=== PATIENT | female | born 1945 | race Caucasian/White ===

== ENCOUNTER → 2021-03-19 14:09 | Outpatient (CLI) | payer MEDICARE, BC, SELFPAY ==
--- NOTE | ~2021-03-19 | MM_ITS ---
EXAMINATION: MM screening [facility] HISTORY: Screening mammogram TECHNIQUE: Craniocaudal and mediolateral oblique 3-D tomosynthesis images were obtained and synthetic 2-D images were generated. CAD analysis was submitted and interpreted. COMPARISON: No prior mammogram is available for comparison at this institution. BREAST PARENCHYMAL COMPOSITION: The breasts are heterogeneously dense, which may obscure small masses . FINDINGS: Scattered benign-appearing calcifications are present. There is no evidence of suspicious m ass, calcification, or architectural distortion to suggest malignancy in either breast. IMPRESSION: 1. No mammographic evidence of malignancy. 2. Recommend routine screening mammography in one year. BI-RADS Category 2: Benign finding(s). Reviewed, dictated and finalized at location A.
== END ==
PROVIDERS: PCP Family Medicine; Visit Provider Family Medicine
DX: Z12.31 Encounter for screening mammogram for malignant neoplasm of breast (principal)
CPT/HCPCS: 77063; 77067

== ENCOUNTER → 2022-05-07 14:33 | Outpatient (CLI) | payer MEDICARE, BC, SELFPAY ==
--- NOTE | ~2022-05-07 | MM_ITS ---
EXAMINATION: MM screening [facility] BI w trish HISTORY: Screening mammogram TECHNIQUE: Craniocaudal and mediolateral oblique 3-D tomosynthesis images were obtained and synthetic 2-D images were generated. CAD analysis was submitted and interpreted. COMPARISON: 03/19/2021 BREAST PARENCHYMAL COMPOSITION: The breasts are heterogeneously dense, which may obscure small masses . FINDINGS: Scattered benign-appearing calcifications are present. There is no suspicious mass, calcifi cation, or architectural distortion to suggest malignancy in either breast. There has been no suspici ous interval change. IMPRESSION: 1. No mammographic evidence of malignancy. 2. Recommend routine screening mammography in one year. BI-RADS Category 2: Benign finding(s). Reviewed, dictated and finalized at location A.
== END ==
PROVIDERS: PCP Family Medicine; Visit Provider Family Medicine
DX: Z12.31 Encounter for screening mammogram for malignant neoplasm of breast (principal)
CPT/HCPCS: 77063; 77067

== ENCOUNTER 2023-01-15 00:31 | Day surgery (SDC) | payer MEDICARE, BC, SELFPAY ==
[2022-12-31 11:28] VITALS: BMI 24.5
--- NOTE | 2023-01-14 19:24 | P.HP_ITS ---
History of Present Illness History of Present Illness Consent: Risks, benefits, and alternatives have been discussed and questions answered. Patient agrees to proceed with procedure. Chief complaint: neoplasm screening Narrative: Precious Damian is a 77 year old female referred for colon cancer screening. She has had several colonoscopies in the past, almost always with 2 polyps being removed. Her last examination was 6 years ago in [place] Review of Systems Review of Systems: All systems reviewed & are unremarkable except as noted in HPI and below PMFSH Past Medical History Medical History Hyperlipidemia Family History Family History Father Cerebrovascular accident Mother Cerebrovascular accident Social History Social History Smoking status: Never smoker Alcohol intake: current Drinks per week: 1 Alcohol use details: wine Substance use: never Substance use type: does not use Living arrangements: alone Spiritual care concerns: No Meds Home Medications and Allergies Home Medications Medication Instructions Recorded Confirmed Type cholecalciferol (vitamin D3) 25 25 mcg PO DAILY 03/26/21 01/15/23 History mcg (1,000 unit) capsule omega 5-bih-tzq-fish oil 100 1 cap PO DAILY 03/26/21 01/15/23 History mg-160 mg-1,000 mg capsule (Fish Oil) venlafaxine 150 mg 150 mg PO DAILY 03/26/21 01/15/23 History capsule,extended release 24 hr arginine HCl (L-arginine) 1,000 mg 1,000 mg PO DAILY 12/31/22 01/15/23 History tablet atorvastatin 80 mg tablet 80 mg PO DAILY 12/31/22 01/15/23 History biotin 5,000 mcg disintegrating 5,000 mcg PO DAILY 12/31/22 01/15/23 History tablet levothyroxine 50 mcg tablet 50 mcg PO DAILY 12/31/22 01/15/23 History mecobalamin (vitamin B12) 1,000 1,000 mcg PO DAILY 12/31/22 01/15/23 History mcg chewable tablet triamcinolone acetonide 55 mcg 1 spray intranasal DAILY 12/31/22 01/15/23 History nasal spray aerosol (Nasacort) Allergies Allergy/AdvReac Type Severity Reaction Status Date / Time theophylline Allergy Unknown Unknown Verified 01/15/23 07:46 cat dander Allergy Other Verified 01/15/23 07:46 mold Allergy Other Verified 01/15/23 07:46 pollen extracts Allergy Other Verified 01/15/23 07:46 Exam Const: General: alert Orientation/consciousness: patient oriented x3 Resp: Auscultation: clear to auscultation bilaterally Cardio: Rhythm: regular rhythm GI: GI Palp: Yes Soft to palpation and No Tenderness to palpation present (GI) Neuro: General: patient oriented x3 Assessment and Plan Assessment and plan (1) Colon cancer screening: Code(s): Z12.11 - Encounter for screening for malignant neoplasm of colon Status: Acute Assessment and Plan: Colonoscopy with possible biopsy or polypectomy or cautery or injection of substances.
[2023-01-15 07:40] VITALS: BP 111/59; PULSE 96; RESP 16; TEMP 36; O2SAT 100; BMI 24.0
[2023-01-15] MEDS: LACTATED RINGERS 1,000 ML 150 ML IV CONT (07:59)
--- NOTE | 2023-01-15 08:12 | WPDANESEPPF ---
Anes - Initial Pre Proc Eval Procedure: Operation Date: 01/15/23 09:00 Proposed Procedures p Screening Colonoscopy - Franklin Landry MD Date/Time: 01/15/23 08:12 Surgeon: Franklin Landry MD Pre Op Diagnosis: neoplasm screening Patient Data Age: 77 Gender: F Height: 1.63 m Weight: 63.6 kg Last Vital Signs Temp 36.0 C L 01/15/23 07:40 Pulse 96 01/15/23 07:40 Resp 16 01/15/23 07:40 BP 111/59 L 01/15/23 07:40 Pulse Ox 100 01/15/23 07:40 O2 Del Method Room Air 01/15/23 07:40 Allergies Allergy/AdvReac Type Severity Reaction Status Date / Time theophylline Allergy Unknown Unknown Verified 01/15/23 07:46 cat dander Allergy Other Verified 01/15/23 07:46 mold Allergy Other Verified 01/15/23 07:46 pollen extracts Allergy Other Verified 01/15/23 07:46 Home Medications Medication Instructions Recorded Confirmed Type cholecalciferol (vitamin D3) 25 25 mcg PO DAILY 03/26/21 01/15/23 History mcg (1,000 unit) capsule omega 8-dia-nrb-fish oil 100 1 cap PO DAILY 03/26/21 01/15/23 History mg-160 mg-1,000 mg capsule (Fish Oil) venlafaxine 150 mg 150 mg PO DAILY 03/26/21 01/15/23 History capsule,extended release 24 hr arginine HCl (L-arginine) 1,000 mg 1,000 mg PO DAILY 12/31/22 01/15/23 History tablet atorvastatin 80 mg tablet 80 mg PO DAILY 12/31/22 01/15/23 History biotin 5,000 mcg disintegrating 5,000 mcg PO DAILY 12/31/22 01/15/23 History tablet levothyroxine 50 mcg tablet 50 mcg PO DAILY 12/31/22 01/15/23 History mecobalamin (vitamin B12) 1,000 1,000 mcg PO DAILY 12/31/22 01/15/23 History mcg chewable tablet triamcinolone acetonide 55 mcg 1 spray intranasal DAILY 12/31/22 01/15/23 History nasal spray aerosol (Nasacort) Patient hx anesthesia problems: none Family hx anesthesia problems: none Results Review: All pre-operative results and documents have been reviewed as part of the pre-operative evaluation. [facility] Past Medical History Medical History (Updated 01/15/23 @ 08:12 by Wes Reed MD) Hyperlipidemia Family History Family History Father Cerebrovascular accident Mother Cerebrovascular accident Social History Social History Smoking status: Never smoker Alcohol intake: current Drinks per week: 1 Alcohol use details: wine Substance use: never Substance use type: does not use Living arrangements: alone Spiritual care concerns: No Anes - Eval Final PreProcedure Day of Procedure 01/15/23 08:12 Patient weight: normal Heart: regular rate and rhythm Lungs: clear to auscultation Airway: Mallampati scale class II Neurological: alert and oriented Last oral intake: >/= 8 hours ASA classification: II Emergent: no Anesthetic plan: proceed Anesthesia type and monitoring: general GIVS and standard monitoring Results Review: All pre-operative results and documents have been reviewed as part of the pre-operative evaluation. Informed Consent: The patient's anesthetic plan and its attendant risks and benefits were discussed with the patient/family/POA. Questions were solicited and answers provided to the satisfaction of the patient/family/POA.
[2023-01-15 09:04] VITALS: BP 140/81; PULSE 76; RESP 18; O2SAT 97
[2023-01-15 09:14] VITALS: BP 128/71; PULSE 79; RESP 18; O2SAT 98
[2023-01-15 09:24] VITALS: BP 119/71; PULSE 70; RESP 22; O2SAT 100
== END 2023-01-15 09:42 | disposition home or self-care (01) ==
PROVIDERS: PCP Family Medicine; Visit Provider Internal Medicine Gastroenterology
PROC: 0DJD8ZZ Inspection of Lower Intestinal Tract, Via Natural or Artificial Opening Endoscopic (ICD-10-PCS; CPT 45378; principal; 2023-01-15 09:00)
DX: Z12.11 Encounter for screening for malignant neoplasm of colon (principal); D12.8 Benign neoplasm of rectum; K57.30 Diverticulosis of large intestine without perforation or abscess without bleeding; E78.5 Hyperlipidemia, unspecified
CPT/HCPCS: 45385; 88305; J2704; J7120

== ENCOUNTER 2023-04-13 02:40 | Inpatient (IN) | payer MEDICARE, BC, SELFPAY ==
[2023-04-13] VITALS (120 sets, daily range): BP systolic 54–157; BP diastolic 34–140; PULSE 76–149; RESP 9–23; TEMP 35.2–36.9; O2SAT 67–100; BMI 26.6
--- NOTE | ~2023-04-13 | CT_ITS ---
Non-contrast Head CT History: Altered mental status Technique: Axial non-contrast imaging of the brain was performed. Dose reduction technique was used on this scan by utilizing automated exposure control and iterative reconstruction technique. The dose -length product (DLP) was 681.00 mGy-cm. Findings: There is no evidence of intracranial hemorrhage, mass lesion, or acute infarct. Brain par enchyma appears normal. The ventricles and subarachnoid spaces are normal in size. The calvarium ap pears normal. Left maxillary sinus disease noted. The remaining visualized paranasal sinuses and mast oid air cells are clear. Impression: No intracranial abnormality seen. Left maxillary sinus disease. Reviewed, dictated and finalized at location . Impression: No intracranial abnormality seen. Left maxillary sinus disease.
--- NOTE | ~2023-04-13 | CT_ITS ---
Clinical Indication: Sepsis, hypotension CT Scan of the Chest, Abdomen, and Pelvis with Contrast: Technique: Contiguous sections were acquired throughout the chest, abdomen, and pelvis after intraven ous administration of 100 cc of Omnipaque 350. Dose reduction technique was used on this scan by joel acrcamo automated exposure control and iterative reconstruction technique. The dose-length product (DL P) was 758.30 mGy-cm. Findings: There is no evidence of any significant mediastinal, hilar or axillary lymphadenopathy. The mediastin al soft tissues and vascular structures appear normal. There is no evidence of pleural or pericardial effusion. Possible minimal interstitial edema. No other consolidation or pulmonary nodule identified. The liver, spleen, pancreas, gallbladder, adrenals and kidneys are within normal limits. No evidence of aortic aneurysm. No lymphadenopathy. No bowel obstruction or bowel wall thickening. There is no evidence to suggest acute appendicitis. Urinary bladder is collapsed runner Neumann catheter. 3.3 cm adnexal cyst present (axial image 187). No ascites. Impression: 3.3 cm right adnexal cyst. Given patient age, gynecologic follow-up and probably yearly ultrasound fo llow-up would be recommended. Possible minimal interstitial edema. Reviewed, dictated and finalized at [facility]. Impression: 3.3 cm right adnexal cyst. Given patient age, gynecologic follow-up and probabl y yearly ultrasound follow-up would be recommended. Possible minimal interstitial edema.
--- NOTE | ~2023-04-13 | XR_ITS ---
Portable chest x-ray Comparison: None Clinical History: Central line placement Findings: Right-sided subclavian line is in satisfactory position. Lungs are clear, without focal co nsolidation or pleural effusion. No pneumothorax. Cardiomediastinal silhouette is stable. Bones and soft tissues are unremarkable. Impression: Right subclavian line in place. Clear lungs. Reviewed, dictated and finalized at location M. Impression: Right subclavian line in place. Clear lungs.
--- NOTE | 2023-04-13 02:49 | ECG_ITS ---
Measurements Intervals [place] Rate: 134 P: OR: 0 QRS: 95 QRSD: 89 T: 89 QT: 243 QTc: 364 Interpretive Statements ATRIAL FIBRILLATION WITH RAPID VENTRICULAR RESPONSE RIGHT AXIS DEVIATION CANNOT RULE OUT SEPTAL INFARCT, AGE INDETERMINATE ST-T WAVE ABNORMALITY IN ANTEROLAT/INF LEADS- CONSIDER ISCHEMIA BASELINE WANDER- I, II, III, AVR, AVL, AVF, V1, V4-V6 ABNORMAL ECG NO PREVIOUS ECG AVAILABLE FOR COMPARISON Electronically Signed On 04-13-2023 6:40:42 CDT by Pepe Pablo D.O.
--- NOTE | 2023-04-13 02:49 | ECG_ITS ---
Measurements Intervals [place] Rate: 81 P: 71 CA: 166 QRS: 79 QRSD: 84 T: 78 QT: 392 QTc: 456 Interpretive Statements SINUS RHYTHM POSSIBLE LEFT ATRIAL ENLARGEMENT ST-T WAVE ABNORMALITY IN LAT/HIGH LAT LEADS- CONSIDER ISCHEMIA BASELINE WANDER- I, II, V1-V3, V6 ABNORMAL ECG NO PREVIOUS ECG AVAILABLE FOR COMPARISON Electronically Signed On 04-13-2023 18:19:39 CDT by Pepe Pablo D.O.
[2023-04-13] MEDS: SODIUM CHLORIDE 0.9% IV 3,000 ML 999 ML IV CONT (02:55)
[2023-04-13 03:12] LABS: Basophils Percent Auto 0.2 % (0.2-1.2); Hematocrit 44.9 % (37.0-47.0); Immature Granulocyte Absolute 0.03 K/mm3 (0.00-0.031); Immature Granulocyte Percent A 0.3 % (0-0.5); Lymphocytes Absolute Auto 1.15 K/mm3 (0.9-3.2); Lymphocytes Percent Auto 9.7 % (18.3-44.2); Mean Corpuscular HGB Conc 33.4 g/dl (32-36); Mean Corpuscular Volume 89.8 fl (80-100); Mean Platelet Volume 10.4 fl (7.4-10.4); Monocytes Absolute Auto 0.7 K/mm3 (0.1-0.6); Monocytes Percent Auto 5.5 % (2.6-8.5); Neutrophils Absolute Auto 10.1 K/mm3 (1.3-6.7); Neutrophils Percent Auto 84.3 % (45.5-73.1); Platelet Count Result 219 k/mm3 (150-375); Red Cell Distribution Width 13.7 % (11.5-14.5); White Blood Count 11.9 K/mm3 (4.5-10.0)
[2023-04-13 03:23] LABS: INR 0.9; Prothrombin Time 12.8 Seconds (11.1-14.7)
[2023-04-13 03:24] LABS: Partial Thromboplastin Time 31.5 SECONDS (22.3-36.8)
[2023-04-13 03:33] LABS: Lactic Acid Reflex 4.8 mmol/L (0.7-2.0)
[2023-04-13 03:34] LABS: Alanine Aminotransferase 26 U/L (6-35); Albumin Level 4.2 g/dL (3.5-5.1); Alkaline Phosphatase 93 U/L (38-126); Anion Gap 9 mmol/L (8-16); Aspartate Amino Transferase 30 U/L (14-36); Bilirubin,Total 0.7 mg/dL (0.2-1.3); Blood Urea Nitrogen 17 mg/dL (7-17); CRP < 0.5 mg/dL (<1.0); Calcium 9.3 mg/dL (8.4-10.2); Carbon Dioxide 28 mmol/L (22-30); Chloride 103 mmol/L (98-107); Estimated CRCL calculation 44 ml/min; Estimated Glomerular Filt Rate > 60; Glucose 173 mg/dL (65-110); Potassium 3.4 mmol/L (3.4-5.0); Sodium 140 mmol/L (137-145)
[2023-04-13 03:57] LABS: Appearance Urine Clear (Clear); Bacteria Urine None Seen /hpf; Bilirubin Urine Negative (Negative); Blood Urine Negative (Negative); Color Urine Yellow (Yellow); Glucose Urine UA Negative (Negative); Ketones Urine Trace mg/dL (Negative); Leukocyte Esterase Ur Negative LEU/UL (Negative); Nitrate Urine Negative (Negative); Protein Urine 1+ mg/dL (Negative); RBC Urine 0-2 /hpf (0-2); Specific Grav Ur 1.018 (1.001-1.035); Squamous Epithelial Cell Urine None seen /hpf (Few); Urobilinogen Urine 0.2 mg/dL (<2.0); WBC Urine 0-5 /hpf
[2023-04-13] MEDS: NOREPINEPHRINE 8 MG/D5W 250 ML 8 MG/250 ML BAG 9.38 MG IV CONT (03:59)
[2023-04-13] MEDS: PIPERACILLIN/TAZOBACTAM SOD 4.5 GM in SODIUM CHLORIDE 0.9% IV 100 ML 200 ML IVPB (04:00)
[2023-04-13 04:15] LABS: Add Urine Microscopic? NO
[2023-04-13] MEDS: SODIUM CHLORIDE 0.9% IV 1,000 ML 999 ML IV CONT (05:12)
[2023-04-13] MEDS: ONDANSETRON INJ 4 MG/2 ML VIAL IV PUSH (05:12)
--- NOTE | 2023-04-13 05:25 | ED.GENADULT ---
HPI - General Adult General Chief complaint: Nausea/Vomiting/Diarrhea Stated complaint: N/V/D Time Seen by Provider: 04/13/23 03:18 History of Present Illness HPI narrative: This is a 77-year-old female presenting to the ED after 1 day of nausea vomiting and diarrhea. On arrival the patient is lethargic and going in and out of consciousness. She is A&O x1. she says she has no complaints other than feeling weak. The daughter is at bedside and states the patient has been having nausea vomiting and diarrhea all day. At 10:30 p.m. the patient called the daughter and sounded weak on the phone. When the daughter went over there she found her collapsed on the bathroom floor covered in diarrhea. She help clean her off and put her to bed but the patient still was not doing well and she called EMS and was brought to the hospital. Related Data Home Medications Medication Instructions Recorded Confirmed cholecalciferol (vitamin D3) 25 25 mcg PO DAILY 03/26/21 01/15/23 mcg (1,000 unit) capsule omega 0-fcf-rgs-fish oil 100 1 cap PO DAILY 03/26/21 01/15/23 mg-160 mg-1,000 mg capsule (Fish Oil) venlafaxine 150 mg 150 mg PO DAILY 03/26/21 01/15/23 capsule,extended release 24 hr arginine HCl (L-arginine) 1,000 mg 1,000 mg PO DAILY 12/31/22 01/15/23 tablet atorvastatin 80 mg tablet 80 mg PO DAILY 12/31/22 01/15/23 biotin 5,000 mcg disintegrating 5,000 mcg PO DAILY 12/31/22 01/15/23 tablet levothyroxine 50 mcg tablet 50 mcg PO DAILY 12/31/22 01/15/23 mecobalamin (vitamin B12) 1,000 1,000 mcg PO DAILY 12/31/22 01/15/23 mcg chewable tablet triamcinolone acetonide 55 mcg 1 spray intranasal DAILY 12/31/22 01/15/23 nasal spray aerosol (Nasacort) Allergies Allergy/AdvReac Type Severity Reaction Status Date / Time theophylline Allergy Unknown Unknown Verified 01/15/23 07:46 cat dander Allergy Other Verified 01/15/23 07:46 mold Allergy Other Verified 01/15/23 07:46 pollen extracts Allergy Other Verified 01/15/23 07:46 [facility] Past Medical History Medical History Hyperlipidemia Family History Family History Father Cerebrovascular accident Mother Cerebrovascular accident Social History Social History Smoking status: Never smoker Alcohol intake: current Drinks per week: 1 Alcohol use details: wine Substance use: never Substance use type: does not use Living arrangements: alone Spiritual care concerns: No Exam Narrative: APPEARANCE: Patient is pale and lapsing in / out of consciousness Head: atraumatic. EYES: EOMI, NOSE: Atraumatic NECK: Trachea midline RESPIRATORY: No increased rate of breathing, clear to auscultation CARDIOVASCULAR: RRR, no peripheral edema ABDOMINAL: Non-distended, soft nontender no guarding or rebound MUSCULOSKELETAl: No obvious deformities NEURO: Alert. Moving 4/4 extremities SKIN:: cool clammy, patient has a red rash diffusely. Per patient and her family this is chronic and has been evaluated by multiple dermatologists with no conclusion. PSYCHIATRIC: lethargic Course Vital Signs Vital signs: Vital Signs Temperature 97.2 F L 04/13/23 02:41 Pulse Rate 83 04/13/23 02:41 Respiratory Rate 13 04/13/23 02:41 Blood Pressure 62/38 L 04/13/23 02:41 Pulse Oximetry 95 04/13/23 02:41 Oxygen Delivery Room Air 04/13/23 02:41 Temperature 95.4 F L 04/13/23 03:34 Pulse Rate 91 04/13/23 05:51 Respiratory Rate 18 04/13/23 05:51 Blood Pressure 116/48 L 04/13/23 05:51 Pulse Oximetry 97 04/13/23 05:51 Oxygen Delivery Room Air 04/13/23 02:41 Procedures Central Line Placement Right SC: Central Line Date: 04/13/23 Discussed w/ the patient/family/POA,the placement of a central venous catheter, including its clinical necessity/indication & associa
[2023-04-13 06:09] LABS: Reflex Lactic Acid Yes or No Add Lactic
[2023-04-13 06:24] LABS: Creatine Kinase 61 U/L (30-135)
[2023-04-13 06:43] LABS: Erythrocyte Sedimentation Rate 8 mm/hr (0-20)
[2023-04-13 06:43] LABS: Lactic Acid 2.1 mmol/L (0.7-2.0)
[2023-04-13 07:03] LABS: Troponin I 0.054 ng/mL (0.000-0.034)
--- NOTE | 2023-04-13 07:10 | ADMGEN ---
This patient, Precious Damian, was admitted to Intensive Care Unit-9. Patient/family oriented to hospital policies and general routines including ID bracelet, bed and alarms, visiting hours, pain management, procedures, bathroom and other care routines, personal items, smoking policy, room service/diet, and visiting hours. Information on how to activate the Rapid Response Team has been discussed. Patient/Family are encouraged to report perceived risks to care and to ask questions if they do not understand what they are told or what they should do.
[2023-04-13 07:15] LABS: Thyroid Stimulating Hormone Reflex 0.238 uIU/mL (0.465-4.68)
[2023-04-13 07:26] LABS: Influenza A QL RT-PCR Negative (Negative); Influenza B QL RT-PCR Negative (Negative); RSV RNA, RT-PCR Negative (Negative); SARS-CoV-2 RNA PCR Negative (Negative)
--- NOTE | 2023-04-13 07:59 | WPDCNINT ---
Assessment and Plan Assessment and plan (1) Shock: Code(s): R57.9 - Shock, unspecified Status: Acute Assessment and Plan: Patient presented with altered mental status, hypotensive, nausea, vomiting, diarrhea after eating some leftovers the previous day. -in the ER patient was found to be hypotensive, was given 4 L IV fluid bolus and started on Levophed after a right subclavian central line was inserted -currently on maintenance IV fluids -continue Levophed and maintain mean arterial pressures > 65 mmHg for adequate end organ perfusion -will monitor renal function and urine -initial lactic acid was 4.8, repeat is 2.1, continue to trend -patient has been started on vancomycin and Zosyn -source likely gastroenteritis versus colitis as seen on CT scan of the chest/abdomen and pelvis -blood cultures have been obtained -UA is negative -chest x-ray did not show any cardiopulmonary disease (2) Nausea & vomiting: Code(s): R11.2 - Nausea with vomiting, unspecified Status: Acute Assessment and Plan: Continue maintenance IV fluids, -p.r.n. Zofran (3) Diarrhea: Code(s): R19.7 - Diarrhea, unspecified Status: Acute Assessment and Plan: Patient states that diarrhea has resolved - (4) Thyroid disorder: Code(s): E07.9 - Disorder of thyroid, unspecified Status: Acute Assessment and Plan: Continue levothyroxine Plan DVT prophylaxis: Lovenox Stress ulcer prophylaxis: Not indicated Nutrition: Clear liquid diet for now Code Status: Full code Critical Care Time Spent: 47 minutes Due to a high probability of clinically significant, life threatening deterioration, the patient required my highest level of preparedness to intervene emergently and I personally spent this critical care time directly and personally managing the patient. This critical care time included obtaining a history; examining the patient; pulse oximetry; ordering and review of studies; arranging urgent treatment with development of a management plan; evaluation of patient's response to treatment; frequent reassessment; and discussions with other providers. It was exclusive of separately billable procedures and treating other patients and teaching time. Please see Assessment and Plan section and the rest of the note for further information on patient assessment and treatment This dictation may have been done utilizing a voice recognition system. Attempts have been made to correct errors. However, there may be uncorrected grammatical, spelling, and recognitions errors present. Medical Staff Physician Consult Note Consult date: 04/13/23 Reason for consult: Nausea, vomiting, diarrhea, hypotension, shock HPI: Precious Damian is a 77 year old female with past medical history of hyperlipidemia, erythema annulare presented the ED on 04/13/2023 in the early hours with complains of nausea, vomiting, diarrhea x1 day. Patient stated she had some leftovers the previous night as she did not have any groceries, she had some leftover pizza, salad and cookies. She states she has multiple episodes of nausea, vomiting and diarrhea at the same time. States that she had large amount of vomitus. [place] very weak and called her daughter, when the daughter arrived she found her alert, oriented x1, less responsive and weak. Daughter found the patient on the bathroom floor covered in diarrhea, she cleaned her of and put her on bed and called EMS and brought to the ER at [facility]. In the ED patient was found to be hypotensive, was given total of 4 L of IV fluids despite which her blood pressures remained low, right subclavian central line was inserted and patient was started Levophed. CT scan of the brain was negative chest x-ray was clear, UA is unremarkable. CT scan of the abdomen and pelvis showed trace pulmonary edema, segmental wall thickening of splenic flexure and descending colon which could be he to mild colitis or possibly under dis
[2023-04-13 08:04] LABS: Free T4 Free Thyroxine Reflex 1.27 ng/dL (0.78-2.19)
[2023-04-13 08:05] LABS: Magnesium 1.5 mg/dL (1.6-2.3)
[2023-04-13 08:52] LABS: Total Triiodothyronine (T3) 0.88 NG/ML (0.97-1.69)
[2023-04-13] MEDS: LACTATED RINGERS 1,000 ML 75 ML IV CONT (08:57)
[2023-04-13] MEDS: ENOXAPARIN 40 MG/0.4 ML SYRINGE SUB-Q (08:58)
[2023-04-13] MEDS: MAGNESIUM SULF 2 GM/WATER 50ML 2 GM/50 ML BAG IVPB (09:01)
[2023-04-13] MEDS: KCL 40 MEQ/WATER 100 ML 100 ML 25 ML IVPB (09:53)
[2023-04-13] MEDS: LEVOTHYROXINE SODIUM 50 MCG TABLET PO (09:54)
--- NOTE | 2023-04-13 12:18 | ADMIMU ---
This patient, Precious Damian, was admitted to IMU status, and placed in Intensive Care Unit-9. Patient/family oriented to hospital policies and general routines including ID bracelet, bed and alarms, visiting hours, pain management, procedures, bathroom and other care routines, personal items, smoking policy, room service/diet, and visiting hours. Valuables list has been completed. Information on how to activate the Rapid Response Team has been discussed. Patient/Family are encouraged to report perceived risks to care and to ask questions if they do not understand what they are told or what they should do.
--- NOTE | 2023-04-13 12:18 | PC.NURSE ---
0701- Pt arrived with 8mcg/min infusing through left ac piv#20. Switched to left subclavian central line .
[2023-04-13] MEDS: PIPERACILLN/TAZ 3.375GM/NS50ML 3.375 GM/50 ML BAG IVPB ×2 (12:22→17:33)
--- NOTE | 2023-04-13 15:50 | PM.IMHP ---
H&P: HPI History of Present Illness Date/Time: 04/13/23 15:50 Chief Complaint: Nausea/Vomiting/Diarrhea Narrative: HPI narrative: ? This is a 77-year-old female presenting to the ED after 1 day of nausea vomiting and diarrhea.? On arrival the patient is lethargic and going in and out of consciousness.? She is A&O x1. she says she has no complaints other than feeling weak. ? The daughter is at bedside and states the patient has been having nausea vomiting and diarrhea all day.? At 10:30 p.m. the patient called the daughter and sounded weak on the phone.? When the daughter went over there she found her collapsed on the bathroom floor covered in diarrhea.? She help clean her off and put her to bed but the patient still was not doing well? and she called EMS and was brought to the hospital. Upon arrival patient was hypotensive most likely secondary to dehydration with vomiting and diarrhea, patient was given IV fluid and patient was placed on Levophed patient blood pressure is Levophed, there is a concern patient have a colitis being treated with Zosyn and vancomycin, overall patient's symptoms are improving will continue to monitor. Patient is admitted as inpatient with shock hypertension on Levophed will stay in the hospital for 2 midnights Review of Systems Review of Systems: All systems reviewed & are unremarkable except as noted in HPI and below PMFSH Past Medical History Medical History Hyperlipidemia Family History Family History Father Cerebrovascular accident Mother Cerebrovascular accident Social History Social History Smoking status: Never smoker Alcohol intake: never Drinks per week: 1 Alcohol use details: wine Substance use: never Substance use type: does not use Lack of Transportation: No Lack of Food: Never True Current Housing: I Have Housing Concerned About Future Housing: No Difficulty Paying Gas/Electric Bills: No Difficulty Paying for Meds: No Currently Unemployed: No Education: High School Diploma/GED Difficulty w/ Childcare or Family Care: No Living arrangements: alone Spiritual care concerns: No Meds Home Medications and Allergies Home Medications Medication Instructions Recorded Confirmed Type cholecalciferol (vitamin D3) 25 25 mcg PO DAILY 03/26/21 04/13/23 History mcg (1,000 unit) capsule omega 8-ehj-dpr-fish oil 100 1 cap PO DAILY 03/26/21 04/13/23 History mg-160 mg-1,000 mg capsule (Fish Oil) venlafaxine 150 mg 150 mg PO DAILY 03/26/21 04/13/23 History capsule,extended release 24 hr arginine HCl (L-arginine) 1,000 mg 1,000 mg PO DAILY 12/31/22 04/13/23 History tablet atorvastatin 80 mg tablet 80 mg PO DAILY 12/31/22 04/13/23 History biotin 5,000 mcg disintegrating 5,000 mcg PO DAILY 12/31/22 04/13/23 History tablet levothyroxine 50 mcg tablet 50 mcg PO DAILY 12/31/22 04/13/23 History mecobalamin (vitamin B12) 1,000 1,000 mcg PO DAILY 12/31/22 04/13/23 History mcg chewable tablet triamcinolone acetonide 55 mcg 1 spray intranasal DAILY 12/31/22 04/13/23 History nasal spray aerosol (Nasacort) Allergies Allergy/AdvReac Type Severity Reaction Status Date / Time theophylline Allergy Unknown Unknown Verified 04/13/23 06:44 cat dander Allergy Other Verified 04/13/23 06:44 mold Allergy Other Verified 04/13/23 06:44 pollen extracts Allergy Other Verified 04/13/23 06:44 Vital Signs Vital Signs - 24 hr 04/13/23 02:41 04/13/23 03:34 04/13/23 03:59 Temperature 97.2 F L 95.4 F L Pulse Rate 83 142 H Respiratory Rate 13 Blood Pressure 62/38 L 74/51 L Pulse Oximetry 95 Oxygen Delivery Room Air 04/13/23 04:05 04/13/23 02:52 04/13/23 02:53 Temperature Pulse Rate 140 H 80 81 Respiratory Rate 21 H 13 Blood Pressure 65/53 L 62/38 L 56/42 L Pul
[2023-04-13] MEDS: CENTRAL LINE FLUSH 10 ML IV PUSH ×3 (17:34→19:53)
[2023-04-13] MEDS: ATORVASTATIN 40 MG TABLET 80 MG PO (19:48)
[2023-04-14] VITALS (55 sets, daily range): BP systolic 109–137; BP diastolic 57–90; PULSE 69–83; RESP 10–36; TEMP 36.8–37; O2SAT 87–98
[2023-04-14] MEDS: LACTATED RINGERS 1,000 ML 75 ML IV CONT (00:18)
[2023-04-14] MEDS: PIPERACILLN/TAZ 3.375GM/NS50ML 3.375 GM/50 ML BAG IVPB ×4 (00:18→17:53)
[2023-04-14] MEDS: ACETAMINOPHEN 325 MG TABLET 650 MG PO ×2 (02:16→21:11)
[2023-04-14] MEDS: CENTRAL LINE FLUSH 10 ML IV PUSH (04:36)
[2023-04-14] MEDS: VANCOMYCIN 1,250 MG/NS 250 ML 1,250 MG/250 ML BAG 166.67 MG IVPB (04:36)
[2023-04-14 05:22] LABS: Lactic Acid Reflex 0.5 mmol/L (0.7-2.0)
[2023-04-14 05:23] LABS: Alanine Aminotransferase 22 U/L (6-35); Albumin Level 2.7 g/dL (3.5-5.1); Alkaline Phosphatase 53 U/L (38-126); Anion Gap 2 mmol/L (8-16); Aspartate Amino Transferase 45 U/L (14-36); Bilirubin,Total 0.5 mg/dL (0.2-1.3); Blood Urea Nitrogen 9 mg/dL (7-17); Calcium 7.4 mg/dL (8.4-10.2); Carbon Dioxide 26 mmol/L (22-30); Chloride 112 mmol/L (98-107); Estimated CRCL calculation 44 ml/min; Estimated Glomerular Filt Rate > 60; Glucose 88 mg/dL (65-110); Magnesium 2.2 mg/dL (1.6-2.3); Phosphorus 2.8 mg/dL (2.5-4.5); Potassium 3.3 mmol/L (3.4-5.0); Sodium 140 mmol/L (137-145)
[2023-04-14 05:30] LABS: Basophils Percent Auto 0.2 % (0.2-1.2); Eosinophils Percent Auto 0.2 % (0-4.4); Hematocrit 32.3 % (37.0-47.0); Hemoglobin 10.4 g/dL (12.0-15.0); Immature Granulocyte Absolute 0.02 K/mm3 (0.00-0.031); Immature Granulocyte Percent A 0.3 % (0-0.5); Immature Platelet Fraction Pct 3.9 % (0.9-11.2); Lymphocytes Absolute Auto 1.24 K/mm3 (0.9-3.2); Lymphocytes Percent Auto 19.1 % (18.3-44.2); Mean Corpuscular HGB Conc 32.2 g/dl (32-36); Mean Corpuscular Hemoglobin 30.5 pg (26-34); Mean Corpuscular Volume 94.7 fl (80-100); Mean Platelet Volume 10.3 fl (7.4-10.4); Monocytes Absolute Auto 0.4 K/mm3 (0.1-0.6); Monocytes Percent Auto 6.8 % (2.6-8.5); Neutrophils Absolute Auto 4.8 K/mm3 (1.3-6.7); Neutrophils Percent Auto 73.4 % (45.5-73.1); Platelet Count Result 121 k/mm3 (150-375); Red Blood Count 3.41 M/mm3 (4.2-5.4); Red Cell Distribution Width 14.4 % (11.5-14.5); White Blood Count 6.5 K/mm3 (4.5-10.0)
[2023-04-14] MEDS: LEVOTHYROXINE SODIUM 50 MCG TABLET PO (06:27)
[2023-04-14] MEDS: VENLAFAXINE HCL XR 75 MG CAP.ER.24H 150 MG PO (08:07)
[2023-04-14] MEDS: POTASSIUM CHLORIDE 20 MEQ TABLET 40 MEQ PO (08:08)
[2023-04-14] MEDS: ENOXAPARIN 40 MG/0.4 ML SYRINGE SUB-Q (08:08)
--- NOTE | 2023-04-14 09:17 | WPDINTPN ---
Progress Note: A&P Assessment and Plan (1) Shock: Code(s): R57.9 - Shock, unspecified Status: Acute Assessment and Plan: Patient presented with altered mental status, hypotensive, nausea, vomiting, diarrhea after eating some leftovers the previous day. -in the ER patient was found to be hypotensive, was given 4 L IV fluid bolus and started on Levophed after a right subclavian central line was inserted -adequate oral intake, will discontinue IV fluids -OFF Levophed -adequate urine output and normal renal function -lactic acid has normalized -04/13: Blood cultures pending -04/13: MRSA screen pending - continue vancomycin and Zosyn (04/13) -source likely gastroenteritis versus colitis as seen on CT scan of the chest/abdomen and pelvis -UA is negative -chest x-ray did not show any cardiopulmonary disease (2) Nausea & vomiting: Code(s): R11.2 - Nausea with vomiting, unspecified Status: Acute Assessment and Plan: Resolved -will discontinue IV fluids as patient has adequate oral intake -p.r.n. Zofran (3) Diarrhea: Code(s): R19.7 - Diarrhea, unspecified Status: Acute Assessment and Plan: Patient states that diarrhea has resolved (4) Thyroid disorder: Code(s): E07.9 - Disorder of thyroid, unspecified Status: Acute Assessment and Plan: Continue levothyroxine Plan DVT prophylaxis: Lovenox Stress ulcer prophylaxis: Not indicated Nutrition: Continue regular diet Code Status: Full code Critical Care Time Spent: 31 minutes Due to a high probability of clinically significant, life threatening deterioration, the patient required my highest level of preparedness to intervene emergently and I personally spent this critical care time directly and personally managing the patient. This critical care time included obtaining a history; examining the patient; pulse oximetry; ordering and review of studies; arranging urgent treatment with development of a management plan; evaluation of patient's response to treatment; frequent reassessment; and discussions with other providers. It was exclusive of separately billable procedures and treating other patients and teaching time. Please see Assessment and Plan section and the rest of the note for further information on patient assessment and treatment This dictation may have been done utilizing a voice recognition system. Attempts have been made to correct errors. However, there may be uncorrected grammatical, spelling, and recognitions errors present. Subjective Date/time seen: 04/14/23 09:17 Interval history: Reason consult: Shock requiring Levophed briefly, hypotension, nausea, vomiting, diarrhea 04/14/2023: Patient seen examined the ICU, is awake but states she is sleepy as she has not slept much at night. Answers questions appropriately and follows simple commands, denies any nausea, vomiting, diarrhea. She remains off Levophed since 10:00 a.m. on 04/13. Patient had adequate urine output, afebrile, hemodynamically stable Review of Systems Review of Systems: All systems reviewed & are unremarkable except as noted in HPI and below Exam Narrative: General: Pleasant female in no acute distress HEENT:? Moist oral mucosa, sclera is clear and pupils are equal and reactive bilaterally Neck:? Supple, no lymphadenopathy Respiratory:? Clear to auscultation bilaterally, adequate air entry, no wheezing Cardiac:? S1-S2 normal, regular rate and rhythm Abdomen:? Soft, nontender, nondistended, normoactive bowel sounds Extremities:? Trace edema, palpable pedal pulses Neuro:? Alert, awake, oriented x3, nonfocal Skin:? Diffuse rash her abdomen and chest which she states is erythema annulare Psych:? Normal mentation and affect Objective Data Vital Signs Vital Signs: Vital Signs - 24 hr 04/13/23 09:30 04/13/23 09:31 04/13/23 09:45 Temperature Pulse Rate 81 81 81 Respiratory Rate 22 H 22 H 21 H Blood
--- NOTE | 2023-04-14 15:16 | WPDPN ---
Progress Note: A&P Assessment and Plan (1) Shock: Code(s): R57.9 - Shock, unspecified Status: Acute Assessment and Plan: HPI narrative: ? This is a 77-year-old female presenting to the ED after 1 day of nausea vomiting and diarrhea.? On arrival the patient is lethargic and going in and out of consciousness.? She is A&O x1. she says she has no complaints other than feeling weak. ? The daughter is at bedside and states the patient has been having nausea vomiting and diarrhea all day.? At 10:30 p.m. the patient called the daughter and sounded weak on the phone.? When the daughter went over there she found her collapsed on the bathroom floor covered in diarrhea.? She help clean her off and put her to bed but the patient still was not doing well? and she called EMS and was brought to the hospital. 04/14/2023 interval history: Upon arrival patient was hypotensive most likely secondary to dehydration with vomiting and diarrhea, patient was given IV fluid and patient was placed on Levophed patient blood pressure was still soft was on Levophed, patient clinical symptoms are improved patient now off Levophed and had no complaints transferred out of ICU, there was a concern patient have a colitis being treated with Zosyn and vancomycin, patient remains clinically stable, 1 bottle of blood culture is growing Gram-positive cocci in clusters will follow-up, overall patient's symptoms are improving will continue to monitor. (2) Acute dehydration: Code(s): E86.0 - Dehydration Status: Acute Assessment and Plan: Most likely secondary nausea or vomiting and poor p.o. intake will continue to hydrate the patient (3) Nausea & vomiting: Code(s): R11.2 - Nausea with vomiting, unspecified Status: Acute Assessment and Plan: Most likely could secondary to gastroenteritis there is a concern patient may have a colitis and being started on Zosyn and vancomycin will continue to monitor Subjective Date/time seen: 04/14/23 15:16 Interval history: HPI narrative: ? This is a 77-year-old female presenting to the ED after 1 day of nausea vomiting and diarrhea.? On arrival the patient is lethargic and going in and out of consciousness.? She is A&O x1. she says she has no complaints other than feeling weak. ? The daughter is at bedside and states the patient has been having nausea vomiting and diarrhea all day.? At 10:30 p.m. the patient called the daughter and sounded weak on the phone.? When the daughter went over there she found her collapsed on the bathroom floor covered in diarrhea.? She help clean her off and put her to bed but the patient still was not doing well? and she called EMS and was brought to the hospital. 04/14/2023 interval history: Upon arrival patient was hypotensive most likely secondary to dehydration with vomiting and diarrhea, patient was given IV fluid and patient was placed on Levophed patient blood pressure was still soft was on Levophed, patient clinical symptoms are improved patient now off Levophed and had no complaints transferred out of ICU, there was a concern patient have a colitis being treated with Zosyn and vancomycin, patient remains clinically stable, 1 bottle of blood culture is growing Gram-positive cocci in clusters will follow-up, overall patient's symptoms are improving will continue to monitor. Review of Systems Review of Systems: All systems reviewed & are unremarkable except as noted in HPI and below Exam Narrative: Patient is comfortable, NAD HEENT: eyes are clear and none icteric LUNGS: Normal respiratory effort ABD: Distended Lower extremities: no edema SKIN: nonjaundiced Neuro: grossly intact. Objective Data Vital Signs Vital Signs: Vital Signs - 24 hr 04/13/23 16:00 04/13/23 18:00 04/13/23 15:30 Temperature Pulse Rate 77 76 Respiratory Rate 12 Blood Pressure Pulse Oximetry 97 Oxygen Delivery Room Air 04/13/23 15:45 04/13/23
[2023-04-14] MEDS: ATORVASTATIN 40 MG TABLET 80 MG PO (21:11)
[2023-04-15] VITALS: BP 142/65; PULSE 73; RESP 14; TEMP 36.6; O2SAT 95
[2023-04-15] MEDS: PIPERACILLN/TAZ 3.375GM/NS50ML 3.375 GM/50 ML BAG IVPB ×2 (01:13→06:22)
[2023-04-15] MEDS: LEVOTHYROXINE SODIUM 50 MCG TABLET PO (06:22)
[2023-04-15 06:34] LABS: Basophils Percent Auto 0.2 % (0.2-1.2); Eosinophils Percent Auto 0.2 % (0-4.4); Hematocrit 33.8 % (37.0-47.0); Hemoglobin 11.1 g/dL (12.0-15.0); Immature Granulocyte Absolute 0.01 K/mm3 (0.00-0.031); Immature Granulocyte Percent A 0.2 % (0-0.5); Lymphocytes Absolute Auto 1.37 K/mm3 (0.9-3.2); Lymphocytes Percent Auto 26.9 % (18.3-44.2); Mean Corpuscular HGB Conc 32.8 g/dl (32-36); Mean Corpuscular Hemoglobin 30.1 pg (26-34); Mean Corpuscular Volume 91.6 fl (80-100); Mean Platelet Volume 10.5 fl (7.4-10.4); Monocytes Absolute Auto 0.4 K/mm3 (0.1-0.6); Monocytes Percent Auto 8.4 % (2.6-8.5); Neutrophils Absolute Auto 3.3 K/mm3 (1.3-6.7); Neutrophils Percent Auto 64.1 % (45.5-73.1); Platelet Count Result 119 k/mm3 (150-375); Red Blood Count 3.69 M/mm3 (4.2-5.4); Red Cell Distribution Width 13.9 % (11.5-14.5); White Blood Count 5.1 K/mm3 (4.5-10.0)
[2023-04-15 06:44] LABS: Estimated CRCL calculation 58 ml/min; Estimated Glomerular Filt Rate > 60; Magnesium 1.9 mg/dL (1.6-2.3)
[2023-04-15] MEDS: VENLAFAXINE HCL XR 75 MG CAP.ER.24H 150 MG PO (10:22)
--- NOTE | 2023-04-15 13:55 | PM.DS ---
DS: Admitting Diagnosis Discharge Date 04/15/2023 Admitting Diagnosis Nausea/Vomiting/Diarrhea DS: Discharge Diagnosis Discharge Diagnosis (1) Shock: Code(s): R57.9 - Shock, unspecified Status: Acute Assessment and Plan: HPI narrative: ? This is a 77-year-old female presenting to the ED after 1 day of nausea vomiting and diarrhea.? On arrival the patient is lethargic and going in and out of consciousness.? She is A&O x1. she says she has no complaints other than feeling weak. ? The daughter is at bedside and states the patient has been having nausea vomiting and diarrhea all day.? At 10:30 p.m. the patient called the daughter and sounded weak on the phone.? When the daughter went over there she found her collapsed on the bathroom floor covered in diarrhea.? She help clean her off and put her to bed but the patient still was not doing well? and she called EMS and was brought to the hospital. 04/14/2023 interval history: Upon arrival patient was hypotensive most likely secondary to dehydration with vomiting and diarrhea, patient was given IV fluid and patient was placed on Levophed patient blood pressure was still soft was on Levophed, patient clinical symptoms are improved patient now off Levophed and had no complaints transferred out of ICU, there was a concern patient have a colitis being treated with Zosyn and vancomycin, patient remains clinically stable, 1 bottle of blood culture is growing Gram-positive cocci in clusters will follow-up, overall patient's symptoms are improving will continue to monitor. (2) Acute dehydration: Code(s): E86.0 - Dehydration Status: Acute Assessment and Plan: Most likely secondary nausea or vomiting and poor p.o. intake will continue to hydrate the patient (3) Nausea & vomiting: Code(s): R11.2 - Nausea with vomiting, unspecified Status: Acute Assessment and Plan: Most likely could secondary to gastroenteritis there is a concern patient may have a colitis and being started on Zosyn and vancomycin will continue to monitor DS: Summary Hospital Course Reason for hospitalization: Nausea/Vomiting/Diarrhea Narrative: HPI narrative: ? This is a 77-year-old female presenting to the ED after 1 day of nausea vomiting and diarrhea.? On arrival the patient is lethargic and going in and out of consciousness.? She is A&O x1. she says she has no complaints other than feeling weak. ? The daughter is at bedside and states the patient has been having nausea vomiting and diarrhea all day.? At 10:30 p.m. the patient called the daughter and sounded weak on the phone.? When the daughter went over there she found her collapsed on the bathroom floor covered in diarrhea.? She help clean her off and put her to bed but the patient still was not doing well? and she called EMS and was brought to the hospital. Upon arrival patient was hypotensive most likely secondary to dehydration with vomiting and diarrhea, patient was given IV fluid and patient was placed on Levophed patient blood pressure is Levophed, there is a concern patient have a colitis being treated with Zosyn and vancomycin, overall patient's symptoms are improving will continue to monitor. Patient is admitted as inpatient with shock hypertension on Levophed will stay in? the hospital for 2 midnights Hospital Course: ?Upon arrival patient was hypotensive most likely secondary to dehydration with vomiting and diarrhea, patient was given IV fluid and patient was placed on Levophed patient blood pressure was still soft was on? Levophed, patient clinical symptoms are improved patient now off Levophed and had no complaints transferred out of ICU, there was a concern patient have a colitis being treated with Zosyn and vancomycin, patient remains clinically stable, 1 bottle of blood culture is growing Gram-positive cocci in clusters will follow-up,? overall patient's symptoms are improving will continue to monitor. Patient remains cli
[2023-04-15 14:00] VITALS: BP 171/79; PULSE 75; RESP 16; TEMP 35.9; O2SAT 97
== END 2023-04-15 16:35 | disposition home or self-care (01) | DRG 391 ==
LOC: ANHED 05:57 → ANHICU 06:42 → ANH3MEDSUR 04-14 14:03
PROVIDERS: Internal Medicine; Admitting Provider Internal Medicine; Emergency Provider Emergency Medicine; PCP Family Medicine; Visit Provider Family Medicine
DX: K52.9 Noninfective gastroenteritis and colitis, unspecified (principal); R57.1 Hypovolemic shock; E87.20 Acidosis, unspecified; E86.0 Dehydration; E78.5 Hyperlipidemia, unspecified; E07.9 Disorder of thyroid, unspecified; R21 Rash and other nonspecific skin eruption; Z20.822 Contact with and (suspected) exposure to COVID-19
CPT/HCPCS: 36415; 36556; 70450; 71260; 74177; 80053; 81003; 82550; 82565; 83605; 83735; 84100; 84439; 84443; 84480; 84484; 85025; 85055; 85610; 85652; 85730; 86140; 87040; 87081; 87147; 87181; 87186; 87637; 93005; 96361; 96365; 96366; 96367; 96375; 99291; A9270; C1751; J1650; J2405; J2543; J3370; J3475; J3480; J7030; J7120; Q9967

== ENCOUNTER → 2023-05-28 14:18 | Outpatient (CLI) | payer MEDICARE, BC, SELFPAY ==
--- NOTE | ~2023-05-28 | MM_ITS ---
EXAMINATION: MM screening alva BI w trish HISTORY: Screening mammogram TECHNIQUE: Craniocaudal and mediolateral oblique 3-D tomosynthesis images were obtained and synthetic 2-D images were generated. CAD analysis was submitted and interpreted. COMPARISON: 05/07/2022, 03/19/2021 lateral screening mammogram examinations BREAST PARENCHYMAL COMPOSITION: The breasts are heterogeneously dense, which may obscure small masses . FINDINGS: Scattered bilateral benign calcifications are again noted. There is no evidence of suspicio us mass, calcification, or architectural distortion to suggest malignancy in either breast. There has been no suspicious interval change. IMPRESSION: 1. No mammographic evidence of malignancy. 2. Recommend routine screening mammography in one year. BI-RADS Category 2: Benign finding(s). Reviewed, dictated and finalized at location A.
== END ==
PROVIDERS: PCP Family Medicine; Visit Provider Family Medicine
DX: Z12.31 Encounter for screening mammogram for malignant neoplasm of breast (principal)
CPT/HCPCS: 77063; 77067

== ENCOUNTER 2023-09-23 15:26 | Emergency (ER) | payer MEDICARE, BC, SELFPAY ==
[2023-09-23] VITALS (8 sets, daily range): BP systolic 161–175; BP diastolic 86–98; PULSE 69–88; RESP 9–20; TEMP 36.4; O2SAT 97–100
--- NOTE | ~2023-09-23 | XR_ITS ---
EXAMINATION: XR chest 1V portable INDICATION: Shortness of breath, COVID 19 TECHNIQUE: Portable AP chest at 1759 hours COMPARISON: 04/13/2023 FINDINGS: The lungs are free of acute opacities. No pleural effusion or pneumothorax. The cardiomedia stinal silhouette is normal. IMPRESSION: 1. No acute cardiopulmonary abnormality. Reviewed, dictated and finalized at location F.
--- NOTE | 2023-09-23 17:52 | ECG_ITS ---
Measurements Intervals [place] Rate: 68 P: 60 ID: 200 QRS: 49 QRSD: 90 T: 84 QT: 389 QTc: 415 Interpretive Statements SINUS RHYTHM NONSPECIFIC T-WAVE ABNORMALITY COMPARED TO ECG 04/13/2023 03:36:58 SINUS RHYTHM HAS BEEN RESTORED AND ISCHEMIC ST SEGMENT CHANGES HAVE RESOLVED Electronically Signed On 09-23-2023 19:52:11 CDT by Yuly Velasquez M.D.
--- NOTE | 2023-09-23 17:53 | ED.RECABL ---
HPI - Recheck/Abnormal Lab/Rx General Chief Complaint: Recheck/Abnormal Lab/Rx Stated Complaint: covid and BP high today Time Seen by Provider: 09/23/23 17:02 History of Present Illness HPI narrative: 78-year-old female reports for evaluation after an elevated blood pressure reading this morning. Patient tested positive for COVID 6 days ago with a home test. Since then, she has been having mostly sinus congestion. Today she states she felt fatigued and had generalized malaise so she took her blood pressure which was 156 over 90s. She states she took it again an hour later and it was around the same. She went to urgent care and was advised to come to the ED for further evaluation. She denies chest pain, shortness of breath, lower extremity edema or pain, abdominal pain, nausea, vomiting, diarrhea, headaches, vision changes, focal numbness or weakness, sore throat, cough, palpitations or syncope. She states she does not have a history of hypertension and normally does not check her blood pressure. She does have a PCP. Related Data Home Medications Medication Instructions Recorded Confirmed cholecalciferol (vitamin D3) 25 25 mcg PO DAILY 03/26/21 04/13/23 mcg (1,000 unit) capsule omega 0-fjl-bir-fish oil 100 1 cap PO DAILY 03/26/21 04/13/23 mg-160 mg-1,000 mg capsule (Fish Oil) venlafaxine 150 mg 150 mg PO DAILY 03/26/21 04/13/23 capsule,extended release 24 hr arginine HCl (L-arginine) 1,000 mg 1,000 mg PO DAILY 12/31/22 04/13/23 tablet atorvastatin 80 mg tablet 80 mg PO DAILY 12/31/22 04/13/23 biotin 5,000 mcg disintegrating 5,000 mcg PO DAILY 12/31/22 04/13/23 tablet levothyroxine 50 mcg tablet 50 mcg PO DAILY 12/31/22 04/13/23 mecobalamin (vitamin B12) 1,000 1,000 mcg PO DAILY 12/31/22 04/13/23 mcg chewable tablet triamcinolone acetonide 55 mcg 1 spray intranasal DAILY 12/31/22 04/13/23 nasal spray aerosol (Nasacort) Allergies Allergy/AdvReac Type Severity Reaction Status Date / Time theophylline Allergy Unknown Unknown Verified 09/23/23 17:12 cat dander Allergy Other Verified 09/23/23 17:12 mold Allergy Other Verified 09/23/23 17:12 pollen extracts Allergy Other Verified 09/23/23 17:12 Review of Systems Review of Systems: CONSTITUTIONAL: Denies fever, chills EYES: Denies visual changes, redness, or discharge. ENT: See HPI CARDIOVASCULAR: Denies chest pain, palpitations, or edema. RESPIRATORY: Denies cough or dyspnea. GASTROINTESTINAL: Denies abdominal pain, nausea, vomiting, or diarrhea. GENITOURINARY: Denies dysuria or hematuria. SKIN: Denies rash or itching. MUSCULOSKELETAL: Denies back pain, joint pain, or myalgia. NEUROLOGIC: Denies headache, numbness, dizziness, or weakness. PSYCHIATRIC: Denies anxiety or depression. [facility] Past Medical History Medical History Hyperlipidemia Family History Family History Father Cerebrovascular accident Mother Cerebrovascular accident Social History Social History Smoking status: Never smoker Alcohol intake: never Drinks per week: 1 Alcohol use details: wine Substance use: never Substance use type: does not use Lack of Transportation: No Lack of Food: Never True Current Housing: I Have Housing Concerned About Future Housing: No Difficulty Paying Gas/Electric Bills: No Difficulty Paying for Meds: No Currently Unemployed: No Education: High School Diploma/GED Difficulty w/ Childcare or Family Care: No Living arrangements: alone Spiritual care concerns: No Exam Narrative: GENERAL: Well-appearing, in no acute distress. Patient resting comfortably in exam bed. She is pleasant and conversational. HEAD: Normocephalic EYES: PERRLA ENT: Nares clear. Mucous membranes moist. Oropharynx without tonsillar hypertrophy exudate or other l
[2023-09-23] MEDS: SODIUM CHLORIDE 0.9% IV 1,000 ML 999 ML IV CONT (18:11)
[2023-09-23 18:21] LABS: Basophils Percent Auto 0.5 % (0.2-1.2); Eosinophils Percent Auto 0.5 % (0-4.4); Hematocrit 45.5 % (37.0-47.0); Hemoglobin 14.9 g/dL (12.0-15.0); Immature Granulocyte Absolute 0.01 K/mm3 (0.00-0.031); Immature Granulocyte Percent A 0.3 % (0-0.5); Lymphocytes Absolute Auto 0.88 K/mm3 (0.9-3.2); Lymphocytes Percent Auto 23.3 % (18.3-44.2); Mean Corpuscular HGB Conc 32.7 g/dl (32-36); Mean Corpuscular Hemoglobin 29.3 pg (26-34); Mean Corpuscular Volume 89.4 fl (80-100); Mean Platelet Volume 9.8 fl (7.4-10.4); Monocytes Absolute Auto 0.4 K/mm3 (0.1-0.6); Monocytes Percent Auto 9.3 % (2.6-8.5); Neutrophils Absolute Auto 2.5 K/mm3 (1.3-6.7); Neutrophils Percent Auto 66.1 % (45.5-73.1); Platelet Count Result 158 k/mm3 (150-375); Red Blood Count 5.09 M/mm3 (4.2-5.4); Red Cell Distribution Width 13.7 % (11.5-14.5); White Blood Count 3.8 K/mm3 (4.5-10.0)
[2023-09-23 18:27] LABS: Appearance Urine Clear (Clear); Bilirubin Urine Negative (Negative); Blood Urine Negative (Negative); Color Urine Yellow (Yellow); Glucose Urine UA Negative (Negative); Ketones Urine Negative (Negative); Leukocyte Esterase Ur Negative LEU/UL (Negative); Nitrate Urine Negative (Negative); Protein Urine Negative (Negative); Specific Grav Ur 1.008 (1.001-1.035); Urobilinogen Urine 0.2 mg/dL (<2.0); pH Urine 6.5 (5.0-9.0)
[2023-09-23 18:28] LABS: Add Urine Microscopic? NO
[2023-09-23 18:32] LABS: Alanine Aminotransferase 26 U/L (6-35); Albumin Level 4.4 g/dL (3.5-5.1); Alkaline Phosphatase 91 U/L (38-126); Anion Gap 6 mmol/L (8-16); Aspartate Amino Transferase 44 U/L (14-36); Bilirubin,Total 0.6 mg/dL (0.2-1.3); Blood Urea Nitrogen 13 mg/dL (7-17); Calcium 9.3 mg/dL (8.4-10.2); Carbon Dioxide 30 mmol/L (22-30); Chloride 100 mmol/L (98-107); Estimated CRCL calculation 49 ml/min; Estimated Glomerular Filt Rate > 60; Glucose 86 mg/dL (65-110); Potassium 3.8 mmol/L (3.4-5.0); Sodium 136 mmol/L (137-145)
== END 2023-09-23 19:59 | disposition home or self-care (01) ==
PROVIDERS: Emergency Provider Physician Assistant; PCP Family Medicine
DX: U07.1 COVID-19 (principal); R03.0 Elevated blood-pressure reading, without diagnosis of hypertension; D72.819 Decreased white blood cell count, unspecified; R53.83 Other fatigue; E78.5 Hyperlipidemia, unspecified; R94.31 Abnormal electrocardiogram [ECG] [EKG]
CPT/HCPCS: 36415; 71045; 80053; 81003; 85025; 93005; 96360; 96361; 99283; J7030

== ENCOUNTER → 2024-01-21 12:22 | Outpatient (CLI) | payer MEDICARE, BC, SELFPAY ==
--- NOTE | ~2024-01-21 | DEXA_ITS ---
Bone Density Report Name: KALEN ZENDEJAS Age: 78 Sex: Female Ethnicity: Rickie Date of : 1945 Indication: postmenopausal; screening for osteoporosis; height loss; Referring Provider: TONIA, SUN Robertson Study: Bone densitometry was performed. Exam Date: January 21, 2024 Accession number: [id number] Bone Density: Region BMD T-score Z-score Classification AP Spine (L1-L4) 0.832 -2.0 0.7 Osteopenia Femoral Neck (Left) 0.718 -1.2 1.1 Osteopenia Total Hip (Left) 0.866 -0.6 1.4 Normal Femoral Neck (Right) 0.716 -1.2 1.0 Osteopenia Total Hip (Right) 0.897 -0.4 1.6 Normal Total Hip Mean 0.882 -0.5 1.5 Normal World Health Organization criteria for BMD impression classify patients as: Normal (T-score at or above -1.0), Osteopenia (T-score between -1.0 and -2.5), or Osteoporosis (T-score at or below -2.5). 10-year Fracture Risk(1): Major Osteoporotic Fracture 12% Hip Fracture 2.4% Reported Risk Factors: [place] (), Neck BMD=0.716, BMI=26.3 (1) FRAX(R) Version 3.08. Fracture probability calculated for an untreated patient. Fracture probability may be lower if the patient has received treatment. Clinical Information Provided by Patient: Has used the following medications: Vitamin D, Calcium Patient maximum height was 65 Menopause Age: 48 Drinks caffeinated beverages Onset of menses at age 12 Number of children 2 Impression: The patient has low bone mass, based on the Total Spine T-score. The patient has an estimated ten-year risk of hip fracture of 2.4% and an estimated ten-year risk of major fracture of 12%, based on the WHO FRAX algorithm. Discussion: BONE DENSITY IS LOW AT ONE OR MORE SKELETAL SITES. This patient's lowest T-score is low at one or more skeletal sites. It meets the World Health Organization's (WHO) criteria for ?low bone mass? (T-score between -1.0 and -2.5). The patient's 10-year risk of fracture as calculated by FRAX is less than the threshold where pharmacological therapy is recommended by the National Osteoporosis Foundation (NOF). However, all treatment decisions require clinical judgment and consideration of individual patient factors, including patient preferences, comorbidities, previous drug use, risk factors not captured in the FRAX model (e.g., frailty, falls, vitamin D deficiency, increased bone turnover, interval significant decline in bone density) and possible under or overestimation of fracture risk by FRAX. The patient should follow a healthful lifestyle (good nutrition with adequate calcium and vitamin D, and appropriate weight-bearing exercise). Follow-Up: Consider repeating this study in 2 to 3 years to reassess this patient's status, or sooner if there is some new clinical indication. Reported by: FANNY on 01/21/2024 12:52:00 PM.
== END ==
PROVIDERS: PCP Physician Assistant; Visit Provider Physician Assistant
DX: Z78.0 Asymptomatic menopausal state (principal); M85.88 Other specified disorders of bone density and structure, other site; M85.852 Other specified disorders of bone density and structure, left thigh; M85.851 Other specified disorders of bone density and structure, right thigh
CPT/HCPCS: 77080

== ENCOUNTER 2024-05-02 09:20 | Outpatient (CLI) | payer MEDICARE, BC, SELFPAY ==
[2024-05-23 19:44] VITALS: BMI 26.0
--- NOTE | 2024-05-23 19:44 | WPDSLEEPSTUD ---
Sleep Study Date of Study: 05/02/24 Ordering Provider: Stehpen Oh Interpreting Physician: Katey Stafford DO Sleep Study Type: Polysomnogram Height: 1.6 m Weight: 66.678 kg Body Mass Index: 26.0 Neck Circumference (inches): 14 Eldred: 3 Reason for Sleep Study Loud snoring Sleep History The patient is a 79-year-old female that had a sleep study ordered by her ENT for evaluation of sleep apnea. The patient rarely awakens from sleep short of breath. She denies awakening at night with heartburn, belching or cough. She constantly snores loudly enough that others complain. She rarely has trouble sleeping when she has a cold. She occasionally wakes up gasping cough out the night. She denies sweating excessively at night. She denies having heart palpitations or irregular heartbeats during the night. She rarely falls asleep during the day but never while driving. She denies sleep paralysis and cataplexy. She frequently experiences vivid dreamlike scenes upon awakening or falling asleep. She denies feeling afraid of going to sleep. She frequently has nightmares and frequently remembers her dreams. She occasionally has thoughts racing through her mind. She occasionally feels sad or depressed. She frequently has anxiety. She occasionally has muscular tension. She denies noticing parts of her body jerk. She denies having crawling and aching feelings in her legs and denies having leg pain during the night. She rarely grinds her teeth during sleep and never awakens with morning jaw pain. She denies being bothered by pain during the day and denies being awakened by pain during the night. She denies waking up feeling stiff in the morning. She denies waking up with sore or achy muscles. She denies waking up with pain in the neck, spine and other joints. She goes to bed at 10:00 p.m. on both weekdays and weekends. It can take her up to 3 hours to fall asleep. She typically does not wake up throughout the night but if she does she will take an anti inflammatory medication along with some food. She wakes up at 8:30 a.m. on weekdays. She typically gets 7 hours of sleep per night. She does not stay in bed after waking up in the morning. She currently lives alone. She denies consuming any caffeinated beverages within 2 hours of bedtime. She denies engaging in physical exercise before bedtime. She will read before falling asleep. She will take naps in the afternoon or the evening if she did not sleep well and they are refreshing. She consumes 2 cups of a caffeinated beverage per day. [facility] Past Medical History Medical History Hyperlipidemia Family History Family History Father Cerebrovascular accident Mother Cerebrovascular accident Social History Social History Smoking status: Never smoker Alcohol intake: never Drinks per week: 1 Alcohol use details: wine Substance use: never Substance use type: does not use Lack of Transportation: No Lack of Food: Never True Current Housing: I Have Housing Concerned About Future Housing: No Difficulty Paying Gas/Electric Bills: No Difficulty Paying for Meds: No Currently Unemployed: No Education: High School Diploma/GED Difficulty w/ Childcare or Family Care: No Living arrangements: alone Spiritual care concerns: No Medications Home Medications Medication Instructions Recorded Confirmed Type cholecalciferol (vitamin D3) 25 25 mcg PO DAILY 03/26/21 04/13/23 History mcg (1,000 unit) capsule omega 2-vex-cll-fish oil 100 1 cap PO DAILY 03/26/21 04/13/23 History mg-160 mg-1,000 mg capsule (Fish Oil) venlafaxine 150 mg 150 mg PO DAILY 03/26/21 04/13/23 History capsule,extended release 24 hr arginine HCl (L-arginine) 1,000 mg 1,000 mg PO DAILY
== END 2024-05-03 07:24 | disposition home or self-care (01) ==
LOC: ANHCSM 09:20
PROVIDERS: PCP Family Medicine
DX: G47.33 Obstructive sleep apnea (adult) (pediatric) (principal)
CPT/HCPCS: 95810

== ENCOUNTER 2024-11-27 10:30 | Outpatient (CLI) | payer MEDICARE, BC, SELFPAY ==
--- NOTE | ~2024-11-27 | MM_ITS ---
EXAMINATION: MM screening [facility] BI w trish HISTORY: Screening mammogram TECHNIQUE: Craniocaudal and mediolateral oblique 3-D tomosynthesis images were obtained and synthetic 2-D images were generated. CAD analysis was submitted and interpreted. COMPARISON: 05/28/2023, 05/07/2022, 03/19/2021 BREAST PARENCHYMAL COMPOSITION:Not Dense. There are scattered areas of fibroglandular density. FINDINGS: No suspicious mass, calcification, or architectural distortion are identified in either malinda ast to suggest malignancy. There has been no suspicious interval change. IMPRESSION: No mammographic evidence of malignancy. Recommend routine screening mammography in one year. BI-RADS Category 1: Negative Reviewed, dictated and finalized at location . 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
== END 2024-11-27 10:31 | disposition home or self-care (01) ==
LOC: MICIMG 10:31
PROVIDERS: PCP Physician Assistant; Visit Provider Physician Assistant
DX: Z12.31 Encounter for screening mammogram for malignant neoplasm of breast (principal)
CPT/HCPCS: 77063; 77067

== ENCOUNTER 2025-05-17 18:26 | Emergency (ER) | payer MEDICARE, BC, SELFPAY ==
--- NOTE | ~2025-05-17 | XR_ITS ---
CHEST RADIOGRAPH CLINICAL HISTORY: Weakness, N/V . COMPARISON: 09/23/2023 TECHNIQUE: Single portable view of the chest. FINDINGS The cardiomediastinal silhouette is unremarkable. The lungs are clear. IMPRESSION: No focal infiltrate or effusion. Reviewed, dictated and finalized at location A.
[2025-05-17 18:25] VITALS: BP 159/74; PULSE 87; RESP 13; TEMP 36.6; O2SAT 96
[2025-05-17 18:33] VITALS: PULSE 87
--- NOTE | 2025-05-17 18:34 | ECG_ITS ---
Test Date: 2025-05-17 18:41:47 Measurements Intervals [place] Rate: 88 P: 56 AL: 185 QRS: 46 QRSD: 87 T: 63 QT: 360 QTc: 437 Interpretive Statements SINUS RHYTHM CONSIDER INFERIOR INFARCT, AGE INDETERMINATE ST-T WAVE ABNORMALITY IN HIGH LATERAL LEADS- CONSIDER ISCHEMIA BASELINE ARTIFACT- I, III, AVR, AVL, AVF, V4-V6 ABNORMAL ECG No previous ECG available for comparison Electronically Signed On 05-17-2025 20:28:59 CDT by Pepe Pablo D.O.
[2025-05-17] MEDS: ONDANSETRON INJ 4 MG/2 ML VIAL IV PUSH (19:00)
[2025-05-17] MEDS: LACTATED RINGERS 1,000 ML 999 ML IV CONT ×2 (19:00→19:01)
--- NOTE | 2025-05-17 19:22 | PC.NURSE ---
Assumed care of patient after receiving bedside report from Johanna RN & RADHA Serrano. @ [phone]
[2025-05-17 19:24] VITALS: BP 152/71; PULSE 82; O2SAT 97
--- OUTSIDE RECORDS SUMMARY | 2025-05-17 19:31 | XMS_ITS | Clinical Summary ---
Author Organization [facility] Address [address] [address] Care Team Providers Care Snuff Blender Name Role Phone Delfino Yang MD Primary Care Provider [phone] Source Comments [facility],non-owned Affiliates and Associated Physician Practices is amultiple site organization consisting of ambulatory clinics and hospital sitesin [place], [place], [place] and [place]. This disclosure is being madepursuant to the Care Everywhere program and may not contain all information available regarding this patient. Last updated 18.[employer] Allergies Active Allergy Reactions Criticality Noted Date Comments Augmentin Vomiting 11/18/2018 Theophylline Other 11/17/2018 Increased heart rate Medications * Be aware that medications may not be up to date on this document. Alwaysverify current medications with the patient. atorvastatin (LIPITOR) 40 MG tablet Take 40 mg by mouth at bedtime Active Venlafaxine HCl (VENLAFAXINE ER 24HR) 150 MG tablet Take 150 mg by mouth daily with breakfast Active levothyroxine 0.4 mcg/mL SOLN bolus from infusion bag Active Social History Tobacco Use Types Packs/Day Years Used Date Smoking Tobacco: Never Smokeless Tobacco: Never Comments Unknown Sex and Gender Information Value Date Recorded Sex Assigned at Not on file Legal Sex Female 1:45 PM OPTICAL EFFECTS LAYOUT PERSON Gender Identity Not on file Sexual Orientation Not on file Last Filed Vital Signs Vital Sign Reading Time Taken Comments Blood Pressure 116/64 11/17/2018 5:21 PM OPTICAL EFFECTS LAYOUT PERSON Pulse 81 11/17/2018 5:21 PM OPTICAL EFFECTS LAYOUT PERSON Temperature 37.1 C (98.7 F) 11/17/2018 5:21 PM OPTICAL EFFECTS LAYOUT PERSON Respiratory Rate - - Oxygen Saturation 97% 11/17/2018 5:21 PM OPTICAL EFFECTS LAYOUT PERSON Inhaled Oxygen Concentration - - Weight 62.6 kg (138 lb) 11/17/2018 5:21 PM OPTICAL EFFECTS LAYOUT PERSON Height 162.6 cm (5' 4) 11/17/2018 5:21 PM OPTICAL EFFECTS LAYOUT PERSON Body Mass Index 23.69 11/17/2018 5:21 PM OPTICAL EFFECTS LAYOUT PERSON Plan of Treatment Health Maintenance Due Date Last Done Comments BONE DENSITY TESTING 1945 DTAP/TDAP/TD VACCINES (1 - Tdap) 1964 PNEUMOCOCCAL VACCINE 50+ (1 of 1 - PCV) 1995 ZOSTER VACCINE (1 of 2) 1995 Respiratory Syncytial Virus (RSV) Vaccine Pt: or over 60 yrs (1 - 1-dose 75+ series) 2020 COVID-19 VACCINE ( - 2023-2 5 season) 2024 DEPRESSION SCREENING 11/29/2024 INFLUENZA VACCINE (Season Ended) 2025 HEPATITIS B VACCINE Aged Out No longe r eligible based on patient's age to complete this topic HIB VACCINE Aged Out No longer eligi ble based on patient's age to complete this topic HPV VACCINE Aged Out No longer eligi ble based on patient's age to complete this topic MENINGOCOCCAL (Group B) VACC INE SHARED DECISION-MAKING Aged Out No longer eligibl e based on patient's age to complete this topic MENINGOCOCCAL GROUPS A/C/Y/W VACCINE Aged Out No longer eligible b ased on patient's age to complete this topic Insurance MEDICARE [facility] MEDICARE [facility] Care Teams Snuff Blender Relationship Specialty Start Date End Date Delfino Yang MD [address] [place] [id number] PCP - General 02/09/23
--- OUTSIDE RECORDS SUMMARY | 2025-05-17 19:31 | XMS_ITS | Encounter Summary ---
Author Organization [facility] Address [address] [place] [address] Care Team Providers Care Interventional Neuroradiologist Name Role Phone Gabriella Jensen MD Primary Care Provider Unav ailable Encounter Details Date Type Department Care Team (Late st Contact Info) Description 04/05/2008 Orders Only [facility] Internal Medicine - [facility] [id number] [place] [address] Precious Vera, ANP [address] [place] [address] Social History Tobacco Use Types Packs/Day Years Used Date Smoking Tobacco: Never Assessed Comments Unknown Sex and Gender Information Value Date Recorded Sex Assigned at Not on file Legal Sex Female 3:58 AM DIRECTOR CLOUD TRANSFORMATION Gender Identity Not on file Sexual Orientation Not on file documented as of this encounter Plan of Treatment Not on file documented as of this encounter Visit Diagnoses Not on filedocumented in this encounter Additional Health Concerns Infection Onset Date Last Indicated Resolved Time R/O COVID-19 10/23/2020 10/23/2020 10/24/2021 9:14 PM DIRECTOR CLOUD TRANSFORMATION documented as of this encounter Care Teams Interventional Neuroradiologist Relationship Specialty Start Date End Date Gabriella Jensen MD PCP - General Internal Medicine 03/29/15 documented as of this encounter
--- OUTSIDE RECORDS SUMMARY | 2025-05-17 19:31 | XMS_ITS | Data Portability ---
Author Organization [facility] [employer] [facility], Main Office Address [address] [place] [address] Assessment No assessment recorded. Plan of Treatment Reminders Order Date Submit Date Provider Last Modified By Organization Details Last Modified Time Details Appointments None recorded. Lab urinalysis, dipstick [address], [address] [place] [address], [address], 14:37:53 culture, urine + sensitivity 2024 025 4 [email or web address] [facility], [address], [place], [address], 5 12:55:41 magnesium, serum or plasma 2024 025 4 [email or web address] [facility], [address], [place], [address], 5 12:55:42 HbA1c (hemoglobin A1c), blood 2024 025 4 [email or web address] [facility], [address], [place], [address], 5 12:55:42 vitamin B12 + folate, serum or blood 2024 025 [email or web address] 4 [email or web address] [facility], [address], [place], [address], 5 12:55:43 vitamin D, 25-hydroxy, total, serum 2024 025 [email or web address] 4 [facility], [address], [place], [address], 12:55:43 vitamin E, serum 2024 [email or web address] 4 [facility], [address], [place], [address], 12:55:43 ferritin, QN, IA, serum or plasma 2024 [email or web address] 4 [facility], [address], [place], [address], 12:55:43 lipid panel, serum 2024 [email or web address] 4 [facility], [address], [place], [address], 12:55:41 CMP, serum or plasma 2024 [email or web address] 4 [facility] [facility], [address], [place], [address], 12:55:41 CBC w/ auto diff 2024 [email or web address] 4 [facility], [address], [place], [address], 5 12:55:42 CK (creatine kinase), total, serum 2024 4 [facility], [address], [place], [address], 12:55:42 Referral None recorded. Procedures None recorded. Surgeries None recorded. Imaging DEXA - *Please call pt to schedule* 2022 023 [facility], [address], [address] [address], [place], [address], 4 12:22:06 Medication Orders nitrofurant oin monohydrate /macrocryst als 100 mg capsule 2024 025 [facility], [address], [place], [id number], 5 14:37:49 phenazopyri dine 200 mg tablet 2024 025 [facility]72346, [address], [place], [id number], 5 14:37:50 losartan 25 mg tablet 2022 023 MARIA DEL ROSARIO [facility] #61331, [address], [place], [id number], 3 12:36:10 fluconazole 150 mg tablet 2022 023 [email or web address] [facility]121, [address], [place], [id number], 5 08:22:03 Patient TargetsNo targets recorded. Patient Instructions Encounter Date Encounter Id Patient Instructions Last Modified By Organization Details Last Modified Time 11/16/2023 [id number] check BP at home , will call if abnormal [email or web address] Not available 11/16/2023 12:40:55 Reason for Referral None Reported. Results Created Date Observation Date Name Description Value Unit Range Abnormal Flag Note LastModifiedBy Organization Detail LastModifiedTime 12/22/1912/23/2022 TSH TSH 3.49 mIU/L 0.40-4 .50 normal Not Available [facility] [address] [place], [address], 12/23/2022 08:11:33 12/22/1912/23/2022 COMPR EHENS MARTHA METAB OLIC PANEL glucose 97 mg/dL 65-99 normal Fasti ng refer ence inter aurelio Not Available [address], [address], 12/23/2022 08:11:32 12/22/19 23 12/23/2022 COMPR EHENS MARTHA METAB OLIC PANEL urea nitrogen (BUN) 13 mg/dL 7-25 normal Not Available [address], [address], 12/23/2022 08:11:32 12/22/19 23 12/23/2022 COMPR EHENS MARTHA METAB OLIC PANEL creatinine 0.79 mg/dL 0.60-1 .00 normal Not Available [address], [address], 12/23/2022 08:11:32 12/22/19 23 12/23/2022 COMPR EHENS MARTHA METAB OLIC PANEL eGFR 77 mL/mi n/1.7 3m2 > or = 60 normal The eGFR is based on the CKD-E PI 2020 equmariano larson. To calcu late the new eGFR from a previ ous Creat inine or Cysta tin C resul t, go to https ://vijay park.jarad martínez/leonie elizabeth s/ kdoqi /gfr% 5Fcal culat or Not Available [address], [address], 12/23/2022 08:11:32 12/22/1912/23/2022 COMPR EHENS MARTHA METAB OLIC PANEL BUN/creatini ne ratio not applic able (calc ) 6-22 Not Available [address], [address], 12/23/2022 08:11:32 12/22/19 23 12/23/2022 COMPR EHENS MARTHA METAB OLIC PANEL sodium 142 mmol/ L 135-14 6 normal Not Available [address], [address], 12/23/2022 08:11:32 12/22/19 23 12/23/2022 COMPR EHENS MARTHA METAB OLIC PANEL potassium 3.6 mmol/ L 3.5-5. 3 normal Not Available [address], [address], 12/23/2022 08:11:32 12/22/19 23 12/23/2022 COMPR EHENS MARTHA METAB OLIC PANEL chloride 106 mmol/ L 98-110 normal Not Available [address], [address], 12/23/2022 08:11:32 12/22/19 23 12/23/2022 COMPR EHENS MARTHA METAB OLIC PANEL carbon dioxide 31 mmol/ L 20-32 normal Not Available [address], [address], 12/23/2022 08:11:32 12/22/19 23 12/23/2022 COMPR EHENS MARTHA METAB OLIC PANEL globulin 2.2 g/dL_ (calc ) 1.9-3. 7 normal Not Available [address], [place], [address], 12/23/2022 08:11:32 12/22/19 23 12/23/2022 COMPR EHENS MARTHA METAB OLIC PANEL calcium 9.2 mg/dL 8.6-10 .4 normal Not Available [address], [address], 12/23/2022 08:11:32 12/22/19 23 12/23/2022 COMPR EHENS MARTHA METAB OLIC PANEL protein, total 6.3 g/dL 6.1-8. 1 normal Not Available [address], [address], 12/23/2022 08:11:32 12/22/19 23 12/23/2022 COMPR EHENS MARTHA METAB OLIC PANEL albumin 4.1 g/dL 3.6-5. 1 normal Not Available [address], [address], 12/23/2022 08:11:32 12/22/19 23 12/23/2022 COMPR EHENS MARTHA METAB OLIC PANEL albumin/glob ulin ratio 1.9 (calc ) 1.0-2. 5 normal Not Available [address], [address], 12/23/2022 08:11:32 12/22/19 23 12/23/2022 COMPR EHENS MARTHA METAB OLIC PANEL bilirubin, total 0.7 mg/dL 0.2-1. 2 normal Not Available [address], [address], 12/23/2022 08:11:32 12/22/19 23 12/23/2022 COMPR EHENS MARTHA METAB OLIC PANEL alkaline phosphatase 105 U/L 37-153 normal Not Available [address], [address], 12/23/2022 08:11:32 12/22/19 23 12/23/2022 COMPR EHENS MARTHA METAB OLIC PANEL AST 21 U/L 10-35 normal Not Available [address], [address], 12/23/2022 08:11:32 12/22/19 23 12/23/2022 COMPR EHENS MARTHA METAB OLIC PANEL ALT 20 U/L 6-29 normal Not Available [address], [address], 12/23/2022 08:11:32 12/22/19 23 12/23/2022 LIPID PANEL , STAND LEESA cholesterol, total 167 mg/dL <200 normal Not Available [address], [address], 12/23/2022 08:11:31 12/22/19 23 12/23/2022 LIPID PANEL , STAND LEESA HDL cholesterol 61 mg/dL > or = 50 normal Not Available [facility] [address] [place] [address], [address], 12/23/2022 08:11:31 12/22/19 23 12/23/2022 LIPID PANEL , STAND LEESA triglyceride s 92 mg/dL <150 normal Not Available [address], [address], 12/23/2022 08:11:31 12/22/19 23 12/23/2022 LIPID PANEL , STAND LEESA LDL-choleste rol 87 mg/dL _(lou c) normal Refer ence range : <100 Marj able range <100 mg/dL for prima ry preve ntion ; <70 mg/dL for patie nts with CHD or diabe tic patie nts with > or = 2 CHD risk facto rs. LDL-C is now calcu lated using the Jennifer n-Hop kins calcu yonis n, which is a valid ated novel radha rose than the Fried shilpi equat ion in the estim ation of LDL-C . Jennifer ontiveros SS et al. LILLIAN. 2013; 310(1 9): 2061- 2068 (http ://ed ucati on.Edgar prater Spare Change Paymentss. com/f aq/FA Q164) Not Available [address], [address], 12/23/2022 08:11:31 12/22/19 23 12/23/2022 LIPID PANEL , STAND LEESA chol/HDLC ratio 2.7 (calc ) <5.0 normal Not Available [facility] [address] [place] [address], [address], 12/23/2022 08:11:31 12/22/19 23 12/23/2022 LIPID PANEL , STAND LEESA non HDL cholesterol 106 mg/dL _(lou c) <130 normal For patie nts with diabe peewee plus 1 major ASCVD risk facto r, treat ing to a non-H DL-C goal of <100 mg/dL (LDL- C of <70 mg/dL ) is jose alejandro vasquez optio n. Not Available [email or web address] [facility] [address], [place], [address], 12/23/2022 08:11:31 02/21/2002/20/2025 urina lysis , dipst ick Leukocytes (reference range: negative kyara/ l) Trace Not Available [address], [address], 02/20/2025 14:20:46 02/21/2002/20/2025 urina lysis , dipst ick Nitrite (reference rage: negative mg/dl) positi ve Not Available [address], [address], 02/20/2025 14:20:46 02/21/2002/20/2025 urina lysis , dipst ick Urobilinogen (reference range: 0.2-1 mg/dl) 0.2 Not Available [address], [address], 02/20/2025 14:20:46 02/21/2002/20/2025 urina lysis , dipst ick Protein (reference range: negative mg/dl) Large Not Available [address], [address], 02/20/2025 14:20:46 02/21/2002/20/2025 urina lysis , dipst ick pH (reference range: 5-7) 5.5 Not Available [address], [address], 02/20/2025 14:20:46 02/21/2002/20/2025 urina lysis , dipst ick Blood (reference range: negative Walter/ l) Large Not Available [address], [address], 02/20/2025 14:20:46 02/21/2002/20/2025 urina lysis , dipst ick Specific Cooter (reference range: 1.005-1.030) 1.020 Not Available [address], [address], 02/20/2025 14:20:46 02/21/2002/20/2025 urina lysis , dipst ick Ketone (reference range: negative mg/dl) Negati ve Not Available [address], [address], 02/20/2025 14:20:46 02/21/2002/20/2025 urina lysis , dipst ick Bilirubin (reference range: negative mg/dl) Negati ve Not Available [address], [address], 02/20/2025 14:20:46 02/21/2002/20/2025 urina lysis , dipst ick Glucose (reference range: negative mg/dl) Negati ve Not Available [address], [address], 02/20/2025 14:20:46 02/21/2002/20/2025 urina lysis , dipst ick Appearance Slight ly Cloudy Not Available [address], [address], 02/20/2025 14:20:46 02/21/20 25 02/20/2025 urina lysis , dipst ick Color Pale Yellow Not Available [facility], [address], 02/20/2025 14:20:46 03/28/20 25 03/29/2025 CULTU RE, URINE , ROUTI NE culture, urine, routine SEE NOTE CULTU RE, URINE , ROUTI NE Micro Numbe r: [id number] Test Statu s: Final Speci men Sourc e: Urine Speci men Quali ty: Adequ ate Resul t: No Growt h Not Available [address], [address], 03/29/2025 18:20:19 03/28/20 25 03/31/2025 LIPID PANEL , STAND LEESA cholesterol, total 179 mg/dL <200 normal Not Available [address], [address], 03/31/2025 16:16:49 03/28/20 25 03/31/2025 LIPID PANEL , STAND LEESA HDL cholesterol 63 mg/dL > or = 50 normal Not Available [address], [address], 03/31/2025 16:16:49 03/28/20 25 03/31/2025 LIPID PANEL , STAND LEESA triglyceride s 94 mg/dL <150 normal Not Available [address], [address], 03/31/2025 16:16:49 03/28/20 25 03/31/2025 LIPID PANEL , STAND LEESA LDL-choleste rol 97 mg/dL _(lou c) normal Refer ence range : <100 Marj able range <100 mg/dL for prima ry preve ntion ; <70 mg/dL for patie nts with CHD or diabe tic patie nts with > or = 2 CHD risk facto rs. LDL-C is now calcu lated using the [facility] kins kim ontiveros, which is a valid ated novel metho d yvonnei yuki martely than the Fried shilpi equat ion in the estim ation of LDL-C . Jennifer ontiveros SS et al. LILLIAN. 2013; 310(1 9): 2061- 2068 (http ://ed ucati on.LSN Mobile. com/f aq/FA Q164) Not Available [address], [address], 03/31/2025 16:16:49 03/28/20 25 03/31/2025 LIPID PANEL , STAND LEESA chol/HDLC ratio 2.8 (calc ) <5.0 normal Not Available [address] [address] [place], [address], 03/31/2025 16:16:49 03/28/20 25 03/31/2025 LIPID PANEL , STAND LEESA non HDL cholesterol 116 mg/dL _(lou c) <130 normal For patie nts with diabe peewee plus 1 major ASCVD risk facto r, treat ing to a non-H DL-C goal of <100 mg/dL (LDL- C of <70 mg/dL ) is luisi livan vasquez optio n. Not Available [address] [address] [place], [address], 03/31/2025 16:16:49 03/28/20 25 03/31/2025 MAGNE SIUM magnesium 1.9 mg/dL 1.5-2. 5 normal Not Available [facility] [address] [address] [place], [address], 03/31/2025 16:16:50 03/28/20 25 03/31/2025 COMPR EHENS MARTHA METAB OLIC PANEL glucose 93 mg/dL 65-99 normal Fasti ng refer ence inter aurelio Not Available [facility] [address] [address] [place], [address], 03/31/2025 16:16:51 03/28/20 25 03/31/2025 COMPR EHENS MARTHA METAB OLIC PANEL urea nitrogen (BUN) 15 mg/dL 7-25 normal Not Available [address], [address], 03/31/2025 16:16:51 03/28/20 25 03/31/2025 COMPR EHENS MARTHA METAB OLIC PANEL creatinine 0.96 mg/dL 0.60-1 .00 normal Not Available [address], [address], 03/31/2025 16:16:51 03/28/20 25 03/31/2025 COMPR EHENS MARTHA METAB OLIC PANEL eGFR 60 mL/mi n/1.7 3m2 > or = 60 normal Not Available [address], [address], 03/31/2025 16:16:51 03/28/20 25 03/31/2025 COMPR EHENS MARTHA METAB OLIC PANEL BUN/creatini ne ratio SEE NOTE: (calc ) 6-22 Not Repor laila: BUN and Creat inine are withi n refer ence range . Not Available [address], [address], 03/31/2025 16:16:51 03/28/2003/31/2025 COMPR EHENS MARTHA METAB OLIC PANEL sodium 142 mmol/ L 135-14 6 normal Not Available [address], [address], 03/31/2025 16:16:51 03/28/20 25 03/31/2025 COMPR EHENS MARTHA METAB OLIC PANEL potassium 3.8 mmol/ L 3.5-5. 3 normal Not Available [address], [address], 03/31/2025 16:16:51 03/28/20 25 03/31/2025 COMPR EHENS MARTHA METAB OLIC PANEL chloride 106 mmol/ L 98-110 normal Not Available [address], [address], 03/31/2025 16:16:51 03/28/20 25 03/31/2025 COMPR EHENS MARTHA METAB OLIC PANEL carbon dioxide 28 mmol/ L 20-32 normal Not Available [address], [address], 03/31/2025 16:16:51 03/28/20 25 03/31/2025 COMPR EHENS MARTHA METAB OLIC PANEL calcium 9.4 mg/dL 8.6-10 .4 normal Not Available [address], [address], 03/31/2025 16:16:51 03/28/20 25 03/31/2025 COMPR EHENS MARTHA METAB OLIC PANEL protein, total 6.5 g/dL 6.1-8. 1 normal Not Available [address], [address], 03/31/2025 16:16:51 03/28/20 25 03/31/2025 COMPR EHENS MARTHA METAB OLIC PANEL albumin 4.4 g/dL 3.6-5. 1 normal Not Available [address], [address], 03/31/2025 16:16:51 03/28/20 25 03/31/2025 COMPR EHENS MARTHA METAB OLIC PANEL globulin 2.1 g/dL_ (calc ) 1.9-3. 7 normal Not Available [address], [address], 03/31/2025 16:16:51 03/28/20 25 03/31/2025 COMPR EHENS MARTHA METAB OLIC PANEL albumin/glob ulin ratio 2.1 (calc ) 1.0-2. 5 normal Not Available [address], [address], 03/31/2025 16:16:51 03/28/20 25 03/31/2025 COMPR EHENS MARTHA METAB OLIC PANEL bilirubin, total 0.7 mg/dL 0.2-1. 2 normal Not Available [address], [address], 03/31/2025 16:16:51 03/28/20 25 03/31/2025 COMPR EHENS MARTHA METAB OLIC PANEL alkaline phosphatase 81 U/L 37-153 normal Not Available [address], [address], 03/31/2025 16:16:51 03/28/20 25 03/31/2025 COMPR EHENS MARTHA METAB OLIC PANEL AST 24 U/L 10-35 normal Not Available [address], [address], 03/31/2025 16:16:51 03/28/20 25 03/31/2025 COMPR EHENS MARTHA METAB OLIC PANEL ALT 18 U/L 6-29 normal Not Available [address], [address], 03/31/2025 16:16:51 03/28/20 25 03/31/2025 CREAT INE KINAS E, TOTAL creatine kinase, total 151 U/L 18-225 normal Not Available [address], [address], 03/31/2025 16:16:52 03/28/20 25 03/31/2025 CBC (INCL UDES DIFF/ PLT) white blood cell count 5.4 thous and/u L 3.8-10 .8 normal Not Available [address], [address], 03/31/2025 16:16:53 03/28/20 25 03/31/2025 CBC (INCL UDES DIFF/ PLT) red blood cell count 4.75 quinton on/uL 3.80-5 .10 normal Not Available [address], [address], 03/31/2025 16:16:53 03/28/20 25 03/31/2025 CBC (INCL UDES DIFF/ PLT) hemoglobin 14.5 g/dL 11.7-1 5.5 normal Not Available [address], [address], 03/31/2025 16:16:53 03/28/20 25 03/31/2025 CBC (INCL UDES DIFF/ PLT) hematocrit 45.0 % 35.0-4 5.0 normal Not Available [address], [address], 03/31/2025 16:16:53 03/28/20 25 03/31/2025 CBC (INCL UDES DIFF/ PLT) MCV 94.7 fL 80.0-1 00.0 normal Not Available [address], [address], 03/31/2025 16:16:53 03/28/20 25 03/31/2025 CBC (INCL UDES DIFF/ PLT) MCH 30.5 pg 27.0-3 3.0 normal Not Available [address], [address], 03/31/2025 16:16:53 03/28/20 25 03/31/2025 CBC (INCL UDES DIFF/ PLT) MCHC 32.2 g/dL 32.0-3 6.0 normal For adult s, a sligh t decre ase in the calcu lated MCHC value (in the range of 30 to 32 g/dL) is most likel y not clini ruth signi fican t; pako er, it shoul d be inter prete d with cauti on in [facility] n with other red cell emilee eters and the patie nt's clini lou condi tion. Not Available [facility] [address], [address], 03/31/2025 16:16:53 03/28/20 25 03/31/2025 CBC (INCL UDES DIFF/ PLT) RDW 13.0 % 11.0-1 5.0 normal Not Available [address], [address], 03/31/2025 16:16:53 03/28/20 25 03/31/2025 CBC (INCL UDES DIFF/ PLT) platelet count 193 thous and/u L 140-40 0 normal Not Available [address], [address], 03/31/2025 16:16:53 03/28/20 25 03/31/2025 CBC (INCL UDES DIFF/ PLT) MPV 10.3 fL 7.5-12 .5 normal Not Available [address], [address], 03/31/2025 16:16:53 03/28/2003/31/2025 CBC (INCL UDES DIFF/ PLT) absolute neutrophils 3245 cells /uL 1500-7 800 normal Not Available [address], [address], 03/31/2025 16:16:53 03/28/20 25 03/31/2025 CBC (INCL UDES DIFF/ PLT) absolute lymphocytes 1372 cells /uL 850-39 00 normal Not Available [facility] [address], [address], 03/31/2025 16:16:53 03/28/20 25 03/31/2025 CBC (INCL UDES DIFF/ PLT) absolute monocytes 491 cells /uL 200-95 0 normal Not Available [facility] [address], [address], 03/31/2025 16:16:53 03/28/20 25 03/31/2025 CBC (INCL UDES DIFF/ PLT) absolute eosinophils 221 cells /uL 15-500 normal Not Available [address], [address], 03/31/2025 16:16:53 03/28/20 25 03/31/2025 CBC (INCL UDES DIFF/ PLT) absolute basophils 70 cells /uL 0-200 normal Not Available [facility] [address], [address], 03/31/2025 16:16:53 03/28/20 25 03/31/2025 CBC (INCL UDES DIFF/ PLT) neutrophils 60.1 % normal Not Available [address], [address], 03/31/2025 16:16:53 03/28/20 25 03/31/2025 CBC (INCL UDES DIFF/ PLT) lymphocytes 25.4 % normal Not Available [facility] [address], [address], 03/31/2025 16:16:53 03/28/20 25 03/31/2025 CBC (INCL UDES DIFF/ PLT) monocytes 9.1 % normal Not Available [facility] [address], [address], 03/31/2025 16:16:53 03/28/20 25 03/31/2025 CBC (INCL UDES DIFF/ PLT) eosinophils 4.1 % normal Not Available [facility] [address], [address], 03/31/2025 16:16:53 03/28/20 25 03/31/2025 CBC (INCL UDES DIFF/ PLT) basophils 1.3 % normal Not Available [facility] [address], [address], 03/31/2025 16:16:53 04/30/20 25 03/31/2025 RUTHY TIN ferritin 74 NG/mL 16-288 normal Not Available [address], [address], 03/31/2025 16:16:55 03/28/20 25 03/31/2025 VITAM IN B12/F OLATE , SERUM PANEL vitamin B12 1544 pg/mL 200-11 00 high Not Available [address], [address], 03/31/2025 16:16:55 03/28/20 25 03/31/2025 VITAM IN B12/F OLATE , SERUM PANEL folate, serum 9.4 NG/mL normal Refer ence Range Low: <3.4 Borde rline : 3.4-5 .4 Kelly l: >5.4 Not Available [address], [address], 03/31/2025 16:16:55 03/28/20 25 03/31/2025 VITAM IN D,25- OH,TO CALIN,I A vitamin D,25-oh,tota l,ia 34 NG/mL 30-100 normal Vitam in D Statu s 25-OH Vitam in D: Defic iency : <20 ng/mL Insuf ficie ncy: 20 - 29 ng/mL Optim al: > or = 30 ng/mL For 25-OH Vitam in D testi ng on patie nts on D2-myrick pplem entat ion and patie nts for whom quant itati on of D2 and D3 fract ions is requi red, the [facility](TM ) 25-OH VIT D, (D2,D 3), LC/MS /MS is recom adelina d: order code 30694 (bin ents >2yrs ). See Note 1 Note 1 For addit ional infor jana padilla e refer to http: //caden ontiveros.Alvarado Tatumia gnost ics.c om/fa q/FAQ 199 (This link is being provi ded for infor matio nal/ educa alexander l purpo ses only. ) Not Available [facility] [address] [place], [address], 03/31/2025 16:16:56 03/28/20 25 03/31/2025 HEMOG LOBIN A1C hemoglobin A1C 5.4 %_of_ total _HGB <5.7 normal For the purpo se of scree dwain for the prese nce of diabe peewee: <5.7% Consi stent with the absen ce of diabe peewee 5.7-6 .4% Consi stent with incre ased risk for diabe peewee (pred iabet es) > or =6.5% Consi stent with diabe peewee This assay resul t is consi stent with a decre ased risk of diabe peewee. Curre ntly, no conse nsus exist s regar yuki use of hemog lobin A1c for diagn osis of diabe peewee in child moi. Accor ding to Ameri can Diabe peeewe Assoc iatio n (ADA) guide lines , hemog lobin A1c <7.0% repre sents optim al contr ol in non-p regna nt diabe tic patie nts. Diffe rent metri cs may apply to speci fic patie nt popul ation s. Stand ards of Medic al Care in Diabe peewee(A DA). Not Available [facility] [address], [place], [address], 03/31/2025 16:16:57 03/28/20 25 03/31/2025 VITAM IN E (TOCO PHERO L) vitamin E, alpha tocopherol 30.4 mg/L 5.7-19 .9 high Level s of alpha -toco phero l <5 mg/L are consi stent with Vitam in E defic iency in adult s. Not Available [facility] [address], [place], [address], 03/31/2025 16:16:58 03/28/20 25 03/31/2025 VITAM IN E (TOCO PHERO L) vitamin E, beta gamma tocopherol <1.0 mg/L <4.4 (Note ) Vitam in suppl ement ation withi n 24 hours prior to blood draw may affec t the accur acy of resul ts. This test was devel oped and its ry tical perfo rmanc e chrissy cteri stics have been deter mined by [employer] [facility]. It has not been clear ed or appro bret by the FDA. This assay has been valid ated pursu ant to the CLIA regul ation s and is used for clini lou purpo ses. [facility] med fusio n [address] [facility] [address] [place] [address] [phone] Leobardo Rodriguez MD, PhD Not Available [email or web address] [facility] [address] [place], [address], 03/31/2025 16:16:58 04/13/20 23 04/13/2023 XR, chest , 2 view No observ ation record ed. [address] [address], [place], [address], 04/13/2023 09:51:51 04/13/20 23 04/13/2023 CT, head, w/o contr ast No observ ation record ed. [address], [place], [address], 04/13/2023 09:50:49 04/13/20 23 04/13/2023 CT, chest , w/o contr ast No observ ation record ed. [address], [place], [address], 04/13/2023 09:35:23 05/28/20 23 05/28/2023 [email or web address] , scree dwain, digit al, bilat eral No observ ation record ed. [address], [place], [address], 05/31/2023 08:38:12 09/23/20 23 09/23/2023 XR, chest , 1 view No observ ation record ed. [email or web address] [facility] [address], [place], [address], 09/27/2023 12:28:46 01/24/20 24 01/21/2024 DEXA No observ ation record ed. [email or web address] [facility] [address], [place], [address], 02/14/2024 15:22:14 05/23/20 24 05/02/2024 sleep study , diagn ostic (PROC ) No observ ation record ed. [email or web address] [facility] [address], [place], [address], 05/24/2024 09:46:30 11/27/20 24 11/27/2024 [email or web address] , scree dwain, digit al, bilat eral No observ ation record ed. [email or web address] [facility] [address], [place], [address], 11/30/2024 12:15:26 Result Notes None recorded. Problems Name Problem SNOMED Code Status Onset Date Resolution Date Notes Provider Name and Address Organization Details Recorded Time Mixed anxiety and depressi ve disorder 732894777 Completed 201702/17/2021 Delfino Yang MD [address] [facility], [address], [place], [address] , [facility] 3 12:59:16 Skin problem 844522239 Active 2019 granulom a reticula rais Not Available [facility] 3 02:57:20 Hypothyr oidism 88211550 Active 2009 Not Available [employer] 3 02:57:20 Contact dermatit is caused by urushiol from [employer] [facility] 478082844 Active 2022 Delfino Yang MD [address], [address], [place], [address] , [facility] 3 14:47:25 Vaginiti s 88959477 Active 2022 Delfino Yang MD [address], [address], [place], [address] , [facility] 3 14:49:10 Mixed anxiety and depressi ve disorder 179884750 Active 2022 Delfino Yang MD [address], [address], [place], [address] , [facility] 3 12:59:16 Urinary symptoms 617839962 Active 2022 Delfino Yang MD [address], [address], [place], [address] , [facility] 3 12:54:33 Hyperlip idemia 61561056 Active 2022 Delfino Yang MD [address], [address], [place], [address] , [facility] 3 14:53:52 Insomnia 675114238 Active 2022 Delfino Yang MD [address], [address], [place], [address] , [facility] 3 15:04:07 COVID-19 509010861 Active 2022 Delfino Yang MD [address], [address], [place], [address] , [facility] 3 12:27:49 Essentia l hyperten cosme 01325097 Active 2022 [facility]AD Espinal [address], [address], [place], [address] , [facility] 3 12:34:00 Osteopen ia 609501115 Active 2023 bilatera l femoral neck 01/21/24 [facility] [address], [address], [place], [address] , Private Practice 4 14:09:45 Dysuria 57093968 Active 2024 BR[facility] Esp[facility] [address], [address] [address], [place], [address] , [facility] [employer] 5 14:18:26 Taking multiple medicati ons for chronic disease 46383618069 4108 Active 2024 BR[facility] Espinal [address], [address], [place], [address] , [facility] [employer] [facility] 5 14:33:46 Angina pectoris 881165210 Active 2024 BRAD Espinal [address], [address] [address], [place], [address] , [facility] [employer] 5 16:59:24 Vitamin E above referenc e range 459189173 Active 2024 BR[facility] Espinal [address], [address] [address], [place], [address] , [facility] [employer] [facility] 5 11:46:14 Problem Notes None recorded. Procedures Surgical History Date Name Laterality Status Provider Name and Address Organization Details Recorded Time 11/27/20 24 screening mammography completed Gissel Ewing RN [facility] 11/30/2024 08:20:45 11/29/19 23 extraction of cataract completed Chel Ferrer RN [facility] 07/18/2024 15:20:49 nasal polypectomy completed Not Available [facility] 01/27/2023 02:46:36 nasal polypectomy completed Not Available [facility] 01/27/2023 02:46:36 Imaging Results None recorded. Procedure Notes None recorded. Medical Equipment None Reported. Allergies Allergen ID Allergen Name Allergen Category Reaction Reaction Severity Criticality Documentation Date Start Date Code Code System Note Provider Name and Address Organization Details Recorded Time 5381 theophyll ine medicatio n Not available Not available Not available 01/27/2023 99475 RxNorm Not Available [facility] 3 03:10:24 Medications Name Sig Start Date Stop Date Status Note LastModified by Organization Details LastModified Time atorvastat in 40 mg tablet TAKE 1 TABLET BY MOUTH IN THE EVENING 08/19 completed Not Available Not Available Not Available atorvastat in 80 mg tablet TAKE 1 TABLET BY MOUTH EVERY DAY active Not Available Not Available No t Available prednisone 10 mg tablet 02/20 completed Not Available Not Available Not Available venlafaxin e ER 75 mg capsule,ex tended release 24 hr TAKE 1 CAPSULE BY MOUTH EVERY DAY 04/28 completed Not Available Not Available Not Available doxycyclin e hyclate 100 mg capsule 02/20 completed Not Available Not Available Not Available trazodone 50 mg tablet TAKE 1 TABLET BY MOUTH EVERY DAY AT BEDTIME FOR 10 DAYS 07/18 completed Not Available Not Available Not Available azithromyc in 250 mg tablet TAKE BY MOUTH ONCE DAILY DIRECTED FOR 5 DAYS 02/20 completed Not Available Not Available Not Available ofloxacin 0.3 % eye drops active Not Available Not Available Not Available fluconazol e 150 mg tablet TAKE 1 TABLET BY MOUTH EVERY DAY FOR 1 DAY 02/20 completed Not Available Not Available Not Available valacyclov ir 1 gram tablet 02/20 completed Not Available Not Available Not Available phenazopyr idine 200 mg tablet TAKE 1 TABLET BY MOUTH THREE TIMES DAILY FOR 2 DAYS active Not Available Not Available No t Available prednisone 20 mg tablet TAKE 2 TABLETS BY MOUTH EVERY DAY FOR 5 DAYS 08/19 completed Not Available Not Available Not Available alendronat e 70 mg tablet TAKE 1 TABLET BY MOUTH EVERY WEEK 2024 active Not Available Not Available Not Avai lable pimecrolim us 1 % topical cream APPLY TOPICALL Y TO FACE TWICE DAILY UNTIL RESOLVED 02/20 completed Not Available Not Available Not Available clobetasol 0.05 % topical cream 04/28 completed Not Available Not Available Not Available venlafaxin e ER 150 mg capsule,ex tended release 24 hr TAKE 1 CAPSULE BY MOUTH EVERY DAY active Not Available Not Available No t Available triamcinol one acetonide 0.1 % topical cream MIKE EXT AA BID PRN 05/22 completed Not Available Not Available Not Available amoxicilli n 500 mg tablet TAKE 1 TABLET BY MOUTH TWICE DAILY FOR 7 DAYS 07/18 completed Not Available Not Available Not Available amoxicilli n 875 mg tablet TAKE 1 TABLET BY MOUTH TWICE DAILY FOR 14 DAYS 04/28 completed Not Available Not Available Not Available famotidine 20 mg tablet 07/18 completed pt states she does not take Not Available Not Available Not Available levothyrox ine 50 mcg tablet TAKE 1 TABLET BY MOUTH EVERY DAY active Not Available Not Available No t Available cephalexin 500 mg capsule 02/20 completed Not Available Not Available Not Available tacrolimus 0.1 % topical ointment APPLY TO RED AREAS ON FACE/SUKUMAR ST/GROIN /BACK TWICE DAILY UNTIL RESOLVED 02/20 completed Not Available Not Available Not Available neomycin-p olymyxin-d exameth 3.5 mg/mL-10,0 00 unit/mL-0. 1% eye drops SHAKE LIQUID AND INSTILL 1 DROP IN BOTH EYES TWICE DAILY. SHAKE WELL BEFORE EACH USE 08/19 completed Not Available Not Available Not Available triamcinol one acetonide 0.1 % topical ointment APPLY TOPICALL Y TO THE AFFECTED AREA TWICE DAILY FOR 10 DAYS active Not Available Not Available No t Available losartan 25 mg tablet TAKE 1 TABLET BY MOUTH EVERY MORNING active Not Available Not Available No t Available nitroglyce rin 0.[address] 1 TABLET UNDER THE TONGUE NEEDED FOR 30 DAYS active Not Available Not Available No t Available budesonide 0.25 mg/2 mL suspension for nebulizati on MIX 1 VIAL WITH SALINE AND IRRIGATE SINUSES TWICE DAILY FOR 30 DAYS 02/20 completed Not Available Not Available Not Available hydrocorti sone 2.5 % topical cream APPLY TOPICALL Y TO THE AFFECTED AREA TWICE DAILY 02/20 completed Not Available Not Available Not Available hydroxyzin e HCl 25 mg tablet TAKE 1 TABLET BY MOUTH EVERY 6 HOURS NEEDED 07/18 completed Not Available Not Available Not Available mupirocin 2 % topical ointment APPLY TOPICALL Y TO THE AFFECTED AREA THREE TIMES DAILY FOR 10 DAYS active Not Available Not Available No t Available methylpred nisolone 4 mg tablets in a dose pack FOLLOW PACKAGE DIRECTIO NS 07/18 completed Not Available Not Available Not Available albuterol sulfate HFA 90 mcg/actuat ion aerosol inhaler INHALE 2 PUFFS BY MOUTH EVERY 4 HOURS NEEDED active Not Available Not Available No t Available cefdinir 300 mg capsule TAKE 1 CAPSULE BY MOUTH TWICE DAILY FOR 5 DAYS 02/20 completed Not Available Not Available Not Available loratadine 10 mg tablet TAKE 1 TABLET BY MOUTH DAILY FOR 14 DAYS active Not Available Not Available No t Available amoxicilli n 875 mg-potassi um clavulanat e 125 mg tablet TAKE 1 TABLET BY MOUTH EVERY 12 HOURS FOR 21 DAYS 02/20 completed Not Available Not Available Not Available nitrofuran toin monohydrat e/macrocry stals 100 mg capsule TAKE 1 CAPSULE BY MOUTH EVERY 12 HOURS FOR 7 DAYS active Not Available Not Available No t Available olopatadin e 0.2 % eye drops INSTILL 1 DROP IN EACH EYE EVERY DAY 08/19 completed Not Available Not Available Not Available Calcium 600 + D(3) 600 mg-10 mcg (400 unit) tablet Take 1 tablet twice a day by oral route with meal(s) for 30 days. 2023 active Not Available Not Available Not Avai lable venlafaxin e ER 150 mg tablet,ext ended release 24 hr TK 1 T PO D 05/05 completed Not Available Not Available Not Available Shingrix (PF) 50 mcg/0.5 mL intramuscu lar suspension , kit ADMINIST ER 0.5ML IN THE MUSCLE DIRECTED 05/22 completed Not Available Not Available Not Available Fluzone High-Dose 2019-20 (PF) 180 mcg/0.5 mL intramuscu lar syringe active Not Available Not Available Not Available Dupixent 300 mg/2 mL subcutaneo us pen injector INJECT 1 PEN UNDER THE SKIN EVERY 2 WEEKS active Not Available Not Available No t Available QuickVue At-Home COVID-19 Test kit TEST DIRECTED TODAY 04/28 completed Not Available Not Available Not Available Paxlovid 300 mg (150 mg x 2)-100 mg tablets in a dose pack TAKE 2 NIRMATRE LVIR TABLETS AND 1 RITONAVI R TABLET TOGETHER BY MOUTH TWICE DAILY FOR 5 DAYS 07/18 completed Not Available Not Available Not Available Vitals Date Recorded Body mass index (BMI) Body height Oxygen saturation Oxygen saturation in Arterial blood by Pulse oximetry Heart rate Body temperature Body weight Systolic blood pressure Diastolic blood pressure Provider Name and Address Organization Details Last Updated DateTime 3 24.8 kg/m2 162.56 cm 97 % 97 % 85 /min 97.3 [degF] 57785.0 2 g 120 mm[Hg] 80 mm[Hg] Not Available [facility] 3 02:55:17 Date Recorded Body height Body mass index (BMI) Body weight Body temperature Respiratory rate Heart rate Oxygen saturation Oxygen saturation in Arterial blood by Pulse oximetry Systolic blood pressure Diastolic blood pressure Provider Name and Address Organization Details Last Updated DateTime 5 163.83 cm 25.2 kg/m2 09371.2 6 g 97.2 [degF] 16 /min 85 /min 97 % 97 % 120 mm[Hg] 74 mm[Hg] Samantha La RN [facility] [facility] 5 14:11:45 Date Recorded Body height Body mass index (BMI) Body weight Body temperature Heart rate Oxygen saturation Oxygen saturation in Arterial blood by Pulse oximetry Systolic blood pressure Diastolic blood pressure Provider Name and Address Organization Details Last Updated DateTime 3 162.56 cm 24.9 kg/m2 09939.8 9 g 98.1 [degF] 76 /min 97 % 97 % 122 mm[Hg] 74 mm[Hg] TINO Katz [facility] 3 14:17:43 Date Recorded Body height Body mass index (BMI) Body weight Body temperature Heart rate Oxygen saturation Oxygen saturation in Arterial blood by Pulse oximetry Respiratory rate Systolic blood pressure Diastolic blood pressure Provider Name and Address Organization Details Last Updated DateTime 4 162.56 cm 25.6 kg/m2 22094.2 6 g 98.1 [degF] 70 /min 97 % 97 % 16 /min 130 mm[Hg] 84 mm[Hg] Chel Ferrer RN [facility] 4 15:23:09 Date Recorded Body height Body mass index (BMI) Body weight Body temperature Heart rate Oxygen saturation Oxygen saturation in Arterial blood by Pulse oximetry Systolic blood pressure Diastolic blood pressure Provider Name and Address Organization Details Last Updated DateTime 3 162.56 cm 25.2 kg/m2 88022.0 8 g 96.9 [degF] 94 /min 98 % 98 % 132 mm[Hg] 86 mm[Hg] Lindsey Donaldson MA [facility] 3 12:18:09 Social History Question Answer Notes LastModified by Organizat ion Details LastModified Time Tobacco Smoking Status Never Smoker Not Available [facility] 01/27/2023 02:45:27 What Is Your Level Of Caffeine Consumption? Moderate [id number] Information not available 01/27/2023 How Much Tobacco Do You Chew? None [id number] Information not available 01/27/2023 In The 14 Days Before Symptom Onset, Have You Had Close Contact With A Laboratory-confirm ed COVID-19 While That Case Was Ill? No [id number] Information not available 01/27/2023 In The 14 Days Before Symptom Onset, Have You Had Close Contact With A Person Who Is Under Investigation For COVID-19 While That Person Was Ill? No [id number] Information not available 01/27/2023 What Type Of Diet Are You Following? REGULAR [id number] Information not available 01/27/2023 What Was The Date Of Your Most Recent Tobacco Screening? 02/17/2021 [id number] Information not available 01/27/2023 Do You Use Sunscreen Routinely? Yes [id number] Information not available 01/27/2023 Sex: Unknown Functional Status Question Answer Note LastModified by [employer] Details LastModified Time What is your level of alcohol consumption? 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 UNEMPLOYED [id number] Information not available 01/27/2023 What is your exercise level? Occasional WALKS HER DOG WHEN IT'S NICE OUT [id number] Information not available 01/27/2023 Mental Status None recorded. Family History Relationship Description Onset Age of this Age Resolved Age Notes LastModified by Organization Details LastModified Time Mother Family history of stroke [id number] Not available 01/27/2023 02:46:47 Mother Alzheimer's disease [id number] Not available 01/27/2023 02:46:47 Father Family history of stroke [id number] Not available 01/27/2023 02:46:47 Medical History Condition Response BLINDNESS N RHEUMATIC FEVER N KIDNEY STONES N BLADDER PROBLEMS N MRSA N OTHER # 1 N POLIO N LUNG DISEASE/DISORDER N RADIATION / CHEMOTHERAPY N COPD N Other # 2 N BLOOD DISEASES N SURGERY N EAR OR HEARING PROBLEMS N MUMPS N FEMALE PROBLEMS / INFECTIONS N DEPRESSION (INCLUDING POST ) N BOWEL PROBLEMS N STROKE/TIA N THYROID DISEASE N ULCERS N BENIGN PROSTATIC HYPERPLASIA N MEASLES N CERVICALGIA N TB SKIN TEST N MYOCARDIAL INFARCTION N PARAPELGIA N OBESITY N GERD/NAUSEA N ANEURYSM N URINARY/BLADDER/KIDNEY PROBLEMS N CORONARY ARTERY DISEASE (CAD) N MENIERE'S DISEASE N ADDICTION CONCERNS N ENDOMETRIOSIS N USE OF BLOOD THINNERS N SKIN PROBLEMS N EMPHYSEMA N GASTROINTESTINAL DISORDER N MUSCLE,JOINT OR BONE PROBLEMS N GASTROINTESTINAL BLEEDING N BLOOD CLOTS N ASTHMA N CATARACTS N ERECTILE DYSFUNCTION N GI PROBLEMS N CHF N Low Testosterone N NEUROPATHY N INFERTILITY N AIDS/HIV N FRACTURES N CHEMOTHERAPY / RADIATION N VISION/EYE PROBLEMS N LIVER DISEASE N MALE HYPOGONADISM N HYPERTENSION N ANXIETY DISORDER Y BLOOD TRANSFUSION N ANEMIA/BLOOD DISORDER N CHRONIC EAR INFECTIONS N BRONCHITIS N TUBERCULOSIS N GLAUCOMA N FOOT PROBLEM N DIVERTICULITIS N SLEEP APNEA N CHICKENPOX N ALLERGIES/HAYFEVER Y INFECTIOUS DISEASE N PROSTATE N HEART ARRHYTHMIA N INSOMNIA N HIGH CHOLESTEROL / HYPERLIPIDEMIA N EYE PROBLEMS N HYPERTHYROIDISM N EATING DISORDER N NEUROLOGICAL PROBLEMS N EDEMA N CHRONIC PAIN SYNDROME N HYPOTHYROIDISM N CAROTID BLOCKAGE N CONSTIPATION N BACK / NECK PROBLEMS N HAVE YOU BEEN HOSPITALIZED OR SEEN IN [facility] IN THE PAST YEAR ? N ATHEROSCLEROSIS N BREAST PROBLEMS N DIALYSIS N ECZEMA N FIBROMYALGIA N OSTEOPOROSIS N ARTHRITIS N NO SIGNIFICANT PAST MEDICAL HISTORY N APPENDICITIS N DIABETES, TYPE N BAD TEETH N HEARTBURN / REFLUX N ADD/ADHD N AUTISM SPECTRUM DISORDER (ASD) N HEPATITIS / LIVER DISEASE N PULMONARY DISEASE N GOUT N SLEEP DISORDER N ALZHEIMER'S DISEASE N PAIN N DEMENTIA N HERPES N SEIZURES/EPILEPSY N HEADACHES/MIGRAINES N VASCULAR DISEASE N PACEMAKER N DIZZINESS N HEART DISEASE/HEART PROBLEMS N KIDNEY DISEASE N SCARLET FEVER N MULTIPLE SCLEROSIS N DEVELOPMENTAL OR BEHAVIORAL DISORDERS N MENTAL DISORDER/ILLNESS N CANCER: SPECIFY N CARDIAC ARRHYTHMIA N PNEUMONIA N ATRIAL FIBRILLATION N Gall Stones N PULMONARY EMBOLISM N AUTOIMMUNE DISEASE N Gynecological History Statement/Question Response Date of Last Mammogram Date of Last Colonoscopy Date of LMP Most Recent Bone Density Obstetrics History GPAL:G 0 P 0 0 0 0 Immunizations Vaccine Type Date Status Note Provider Nam e and Address Organization Details Recorded Time influenza, unspecified formulation 2 completed Not Available [facility] 01/27/2023 03:10:09 COVID-19, mRNA, LNP-S, PF, 30 mcg/0.3 mL dose 1 completed Not Available [facility] 01/27/2023 03:10:10 Past Encounters Encounter ID Performer Location Encounter Start Date Encounter Closed Date Diagnosis/Indication Diagnosis SNOMED-CT Code Diagnosis ICD10 Code Diagnosis Note [id number] Emmett Robles MD [facility] [place] [address] [facility] [address] [place] [address] 02/11/2021 00:00:00 02/11/2021 17:25:53 [id number] [facility] ic_Gateway _ATHENA_M IGRATION_ DEFAULT_1 _1 , 02/17/2021 00:00:00 02/17/2021 23:22:02 [id number] Delfino Yang MD [facility] A[address] barron [address] [place] [address] [place] [address] 05/22/2021 00:00:00 05/22/2021 21:49:53 [id number] Delfino Yang MD [facility] A[place] [address] [place] [address] [place] [address] 08/19/2022 00:00:00 09/09/2022 09:04:14 [id number] Delfino Yang MD [facility] A[address] [place] [address] [place] [address] 12/14/2022 00:00:00 12/14/2022 21:16:25 [id number] Delfino Yang MD [facility] Aida [address]ron [address] [place] [address] [place] [address] 04/28/2023 14:06:22 04/28/2023 14:52:11 Hospital inpatient stay within past 30 days 1706443158 106 Z76.89 Dehydratio n and hypotensiv e. Contact de rmatitis caused by urushiol from [facility] [employer] [facility] 536590912 L25.5 Sees dermatolog ist today at 3 She will treat Vaginitis 15702721 N76.0 [id number] Delfino Yang MD [facility] Aida barron [address] [place] [address] [place] [address] 11/16/2023 12:08:41 11/16/2023 12:42:57 Essential hypertension 19991630 I10 Hyperlipidemia 96836564 E78.5 Screening for osteoporosis 556222897 Z13.820 Bone density finding 385 227506 M85.80 Postmenopausal state 764 82199 Z78.0 [id number] Pasha Shaw MD [facility] [address] [facility], [place] [address] 07/18/2024 15:04:16 07/18/2024 15:40:43 Essential hypertension 49286477 I10 Hyperlipidemia 67069030 E78.5 Hypothyroidism 39434678 E03.9 Insomnia 538929692 G47.0 0 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 Osteopenia 503583520 M85 .80 bilateral femoral neck [id number] Pasha Shaw MD [address] [place] [address] 02/20/2025 14:03:58 02/20/2025 15:15:51 Dysuria 58917418 R30.0 Essential hypertension 58670555 I10 Hyperlipidemia 21169499 E78.5 Osteopenia 071471476 M85 .80 bilateral femoral neck Urinary symptoms 2798096 08 R39.9 Taking mul tiple medications for chronic disease 0455993686 10316 Z79.899 Health Concerns Section Related Observation LastModified by Organization Detai ls LastModified Time None Recorded Concern Status LastModified by Organization Details LastModified Time None Recorded Advance Directives Directive None Recorded Payers Insurance Date Sequence Insurance Name Policy Number Policy Farris Covered Member ID Farris Member ID Guarantor Name 02/17/2025 1 [place] Precious Damian [id number] Precious Damian 02/27/2025 2 [place] 111 Precious Damian [id number] Precious Damian 07/18/2024 [facility] Precious Damian BCBS BCBS Precious Damian Notes Date Note Type Note Provider Name and Address Organization Details Recorded Time 04/28/2023 text/html Here today for f /u of hospitalization for dehydration and hypotension. She was dehydrated d/t vomiting and diarrhea and not drinking fluids.She is doing fine now.Has a rash on right arm. Has a rash on neck and face Delfino Yang MD [address], [address], [place], [address], Private Practice 04/28/2023 19:05:27 11/16/2023 text/html Had covid , bp 1 50. stressed friend in [place] may have parkinson's. Precious had [employer] screening last August , all normal [facility] [address], [place], [address], Private Practice 11/27/2023 10:18:48 07/18/2024 text/html right knee swell s from time to time , no pain . [facility] [address], [place], [address], Private Practice 07/25/2024 10:58:00 02/20/2025 text/html frequency , urge ncy . since last night [facility] [address], [place], [address], Private Practice 02/26/2025 17:06:06 OBGyn Episode No OBEpisode recorded.
--- OUTSIDE RECORDS SUMMARY | 2025-05-17 19:31 | XMS_ITS | Encounter Summary ---
Author Organization [employer] Address [address] [place] [address] Care Team Providers Care Community Representative Name Role Phone Gabriella Jensen MD Primary Care Provider Unav ailable Encounter Details Date Type Department Care Team (Late st Contact Info) Description 02/04/2009 Outpatient Historical [facility] Gabriella Jensen MD NO ADDRESS ON FILE Nonspecific Abnormal Results of Thyroid Function Study Social History Tobacco Use Types Packs/Day Years Used Date Smoking Tobacco: Never Alcohol Use Standard Drinks/Week Comments No 0 (1 standard drink = 0.6 oz pur e alcohol) Comments No Sex and Gender Information Value Date Recorded Sex Assigned at Not on file 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[employer] Gender Identity Not on file Sexual Orientation Not on file documented as of this encounter Plan of Treatment Not on file documented as of this encounter Visit Diagnoses Diagnosis Nonspecific abnormal results of thyroid function study documented in this encounter Additional Health Concerns Infection Onset Date Last Indicated Resolved Time R/O COVID-19 10/23/2020 10/23/2020 10/24/2021 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
--- OUTSIDE RECORDS SUMMARY | 2025-05-17 19:31 | XMS_ITS | Encounter Summary ---
Author Organization [facility] Address [address] [place] [address] Care Team Providers Care Aquaculture And Fisheries Professor Name Role Phone Gabriella Jensen MD Primary Care Provider Unav ailable Encounter Details Date Type Department Care Team (Late st Contact Info) Description 03/30/2007 Orders Only [facility] Internal Medicine - [facility] [address] [id number] [facility] [address] [place] [address] Gabriella Jensen MD NO ADDRESS ON FILE Social History Tobacco Use Types Packs/Day Years Used Date Smoking Tobacco: Never Assessed Comments Unknown Sex and Gender Information Value Date Recorded Sex Assigned at Not on file 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 Wants us to fax prescription to [facility], but no Fax # or id #. DOCTOR`S RESPONSE: eleni 03/30/07 at 12:45 pm MEDICATIONS: ZOCOR ORAL TABLET 40 MG, 1 Every Day, 90 Dispensed, 3 Fills, status: CONTINUED, 03/30/2007. Printed. Due for lipids, alt, ast. PT PROBLEMS & ORDERS: 272.4-HYPERLIPIDEMIA LAB ORDERS: Order number: [id number] Test Ordered: LIPID PANEL 7600 SECTION 4: DOCTOR`S RESPONSE: eleni 03/30/07 at 12:48 pm PT PROBLEMS & ORDERS: V58.69-GLASSIE USE OF OTHER MEDICATION(S) LAB ORDERS: Order number: [id number] Test Ordered: ALT 823 Order number: [id number] Test Ordered: AST 822 Printed FINAL ACTION: polina 03/30/07 at 04:54 pm Spoke with patient 03/30/07 at 04:54 pm. faxed Rx to [facility] [id number]. Told pt that if she does not receive mail order med, she can mail Rx to [facility]. Mailed Rx and lab order to pt. 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
--- OUTSIDE RECORDS SUMMARY | 2025-05-17 19:31 | XMS_ITS | Encounter Summary ---
Author Organization [facility] Address [address] [place] [address] Care Team Providers Care Parking Enforcement Officer Name Role Phone Gabriella Jensen MD Primary Care Provider Unav ailable Encounter Details Date Type Department Care Team (Late st Contact Info) Description 09/26/2007 Outpatient Historical [facility] Internal Medicine - [facility] [address] [id number] [facility] [address] [place] [address] Gabriella Jensen MD NO ADDRESS ON FILE Social History Tobacco Use Types Packs/Day Years Used Date Smoking Tobacco: Never Assessed Comments Unknown Sex and Gender Information Value Date Recorded Sex Assigned at Not on file 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 Gender Identity Not on file Sexual Orientation Not on file documented as of this encounter Last Filed Vital Signs Vital Sign Reading Time Taken Comments Blood Pressure 118/84 09/26/2007 1:15 PM CDT Pulse 68 09/26/2007 1:15 PM CDT Temperature 37.4 C (99.3 F) 09/26/2007 1:15 PM CDT Respiratory Rate - - Oxygen Saturation - - Inhaled Oxygen Concentration - - Weight 73 kg (161 lb) 09/26/2007 1:15 PM CDT Height - - Body Mass Index - - documented in this encounter Plan of Treatment Not on file documented as of this encounter Visit Diagnoses Not on filedocumented in this encounter Additional Health Concerns Infection Onset Date Last Indicated Resolved Time R/O COVID-19 10/23/2020 10/23/2020 10/24/2021 9:14 PM PLATER PRODUCTION documented as of this encounter Care Teams Parking Enforcement Officer Relationship Specialty Start Date End Date Gabriella Jensen MD PCP - General Internal Medicine 03/29/15 documented as of this encounter
--- OUTSIDE RECORDS SUMMARY | 2025-05-17 19:31 | XMS_ITS | Encounter Summary ---
Author Organization [facility] Address [address] [place] [address] Care Team Providers Care Meat Hanger Name Role Phone Gabriella Jensen MD Primary Care Provider Unav ailable Encounter Details Date Type Department Care Team (Late st Contact Info) Description 11/15/2007 Orders Only [facility] Internal Medicine - [facility] [address] [id number] [facility] [address] [place] [address] Precious Vera, ANP [address] [address] [facility] [address] [place] [address] Social History Tobacco Use Types Packs/Day Years Used Date Smoking Tobacco: Never Assessed Comments Unknown Sex and Gender Information Value Date Recorded Sex Assigned at Not on file Legal Sex Female 3:58 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 ALTERNATIVE PHONE NUMBER: home WHO CALLED: Patient called. CURRENT ALLERGY LIST: CATS DUST AND MOLD GRASS POLLEN DARLING-DUR decongestants PHARMACY NUMBER: [phone] or [phone] or [phone] Pt said in [place], [place]. PROBLEMS: No fever. CONGESTION: Patient complains of chest congestion, complains of sinus congestion, complains of headcongestion. sinus pressure COUGH: . during night RUNNY NOSE: . drainage, colored w/blood also. x 1 week. Tried Mucinex yesterday. Not helping much. Said she can't use decongestants. SECTION 1: REQUESTED ACTION mireya 11/15/07 at 11:51 am: MEDICATION REQUEST: Patient wants medications and can not come in. DOCTOR`S RESPONSE: [email or web address] 11/15/07 at 12:25 pm MEDICATIONS: Call in to Pharmacy AMOXICILLIN ORAL TABLET 875 MG, 1 Two Times A Day, 20 Dispensed, status: NEW PRESCRIPTION, 11/15/2007. Spoke with patient and instructed patient appropriately. called pt . Advised to use vaporizer and ocean nasal spray. Aware of Rx to be called. please note home phone n umber is disconnected . Number on privacy from is correct please correct in chart SECTION 2: FINAL ACTION: [email or web address] 11/15/07 at 02:16 pm Called pharmacy at 11/15/07 at 02:17 pm. ds Electronically Signed by: Dasha Cabrera on Thursday, November 15, 2007 documented in this encounter Plan of Treatment Not on file documented as of this encounter Visit Diagnoses Not on filedocumented in this encounter Additional Health Concerns Infection Onset Date Last Indicated Resolved Time R/O COVID-19 10/23/2020 10/23/2020 10/24/2021 9:14 PM TRAFFIC PERSONNEL SUPERVISOR documented as of this encounter Care Teams Meat Hanger Relationship Specialty Start Date End Date Gabriella Jensen MD PCP - General Internal Medicine 03/29/15 documented as of this encounter
--- OUTSIDE RECORDS SUMMARY | 2025-05-17 19:31 | XMS_ITS | Encounter Summary ---
Author Organization [facility] Address [address] [place] [address] Care Team Providers Care Reconciling Clerk Name Role Phone Gabriella Jensen MD Primary Care Provider Unav ailable Encounter Details Date Type Department Care Team (Late st Contact Info) Description 09/05/2007 Orders Only [facility] Internal Medicine - [facility] [address] [address] [facility] [address] [place] [address] Gabriella Jensen MD NO ADDRESS ON FILE Social History Tobacco Use Types Packs/Day Years Used Date Smoking Tobacco: Never Assessed Comments Unknown Sex and Gender Information Value Date Recorded Sex Assigned at Not on file Legal Sex Female 3:58 AM LICENSED PRACTICAL NURSE 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 Gender Identity Not on file Sexual Orientation Not on file documented as of this encounter Progress Notes * Gabriella Jensen MD - 04/13/2008 11:04 AM CDT TIME:09:15 am PATIENT`S HOME PHONE: PATIENT`S WORK PHONE: PATIENT`S INSURANCE: [facility] WHO TOOK THE CALL: Mary Kay Chauhan E GENERAL INFORMATION PCP: banking representative WHO CALLED: SECTION 1: REQUESTED ACTION adeline 09/05/07 at 09:16 am: MEDICATION REQUEST: MEDICATIONS: MAIL ORDER 90 DAY 3 RF MAIL TO PATIENT EFFEXOR ORAL TABLET 75 MG, 1 po qd, 90 Dispensed, 3 Fills, status: CONTINUED, 07/13/2006. generic DOCTOR`S RESPONSE: eleni 09/05/07 at 12:38 pm MEDICATIONS: EFFEXOR ORAL TABLET 75 MG, 1 po qd, 90 Dispensed, 3 Fills, status: CONTINUED, 09/05/2007. Printed. PT PROBLEMS & ORDERS: FINAL ACTION: polina 09/05/07 at 03:03 pm mailed Rx to pt Electronically Signed by: Georgie Harper on Wednesday, September 05, 2007 documented in this encounter Plan of Treatment Not on file documented as of this encounter Visit Diagnoses Not on filedocumented in this encounter Additional Health Concerns Infection Onset Date Last Indicated Resolved Time R/O COVID-19 10/23/2020 10/23/2020 10/24/2021 9:14 PM LICENSED PRACTICAL NURSE CLINIC NURSE documented as of this encounter Care Teams Reconciling Clerk Relationship Specialty Start Date End Date Gabriella Jensen MD PCP - General Internal Medicine 03/29/15 documented as of this encounter
--- OUTSIDE RECORDS SUMMARY | 2025-05-17 19:31 | XMS_ITS | Encounter Summary ---
Author Organization [facility] Address [address] [place] [address] Care Team Providers Care Web Marketing Manager Name Role Phone Gabriella Jensen MD Primary Care Provider Unav ailable Encounter Details Date Type Department Care Team (Late st Contact Info) Description 12/10/2008 Outpatient Historical [facility]PUL[facility]riella Nick MD NO ADDRESS ON FILE Other Chest Pain Social History Tobacco Use Types Packs/Day Years Used Date Smoking Tobacco: Never Alcohol Use Standard Drinks/Week Comments No 0 (1 standard drink = 0.6 oz pur e alcohol) Comments No Sex and Gender Information Value Date Recorded Sex Assigned at Not on file Legal Sex Female 3:58 AM POSTDOCTORAL SCHOLAR Gender Identity Not on file Sexual Orientation Not on file documented as of this encounter Plan of Treatment Not on file documented as of this encounter Visit Diagnoses Diagnosis Other chest pain documented in this encounter Additional Health Concerns Infection Onset Date Last Indicated Resolved Time R/O COVID-19 10/23/2020 10/23/2020 10/24/2021 9:14 PM POSTDOCTORAL SCHOLAR documented as of this encounter Care Teams Web Marketing Manager Relationship Specialty Start Date End Date Gabriella Jensen MD PCP - General Internal Medicine 03/29/15 documented as of this encounter
--- OUTSIDE RECORDS SUMMARY | 2025-05-17 19:32 | XMS_ITS | Encounter Summary ---
Author Organization [facility] Address [address] [place] [address] Care Team Providers Care Alterations Sewer Name Role Phone Lane Mello Primary Care Provider + Reason for Visit * Reason Comments Ear Problem Was here Wednesday, for a cough and thinks she has a sinus infection, and pink eye, she now has a really bad ear infection in her right ear, started 3 days ago Encounter Details Date Type Department Care Team (Late st Contact Info) Description 05/17/2025 9:30 AM CDT Office Visit [facility] at [address] [address] [place] [address] [place] [address] [address] [place] [address] Acute frontal sinusitis, recurrence not specified (Primary Dx); Acute otitis externa of right ear, unspecified type Social History Tobacco Use Types Packs/Day Years Used Date Smoking Tobacco: Never Assessed Comments Unknown Sex and Gender Information Value Date Recorded Sex Assigned at Not on file Legal Sex Female 3:31 PM IT 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 Gender Identity Not on file Sexual Orientation Not on file documented as of this encounter Last Filed Vital Signs Vital Sign Reading Time Taken Comments Blood Pressure 118/74 05/17/2025 9:32 AM CDT Pulse 81 05/17/2025 9:32 AM CDT Temperature 36.2 C (97.2 F) 05/17/2025 9:32 AM CDT Respiratory Rate 20 05/17/2025 9:32 AM CDT Oxygen Saturation 96% 05/17/2025 9:32 AM CDT Inhaled Oxygen Concentration - - Weight 66 kg (145 lb 9.6 oz) 05/17/2025 9:32 AM CDT Height 162.6 cm (5' 4.02) 05/17/2025 9:32 AM CD T Body Mass Index 24.98 05/17/2025 9:32 AM CDT documented in this encounter Ordered Prescriptions Prescription Sig Dispense Quantity Refills Last Filled Start Date End Date ciprofloxacin-dexA METHasone (CIPRODEX) otic suspensionIndicati ons:Acute otitis externa of right ear, unspecified type Administer 4 drops into the right ear 2 (two) times a day for 7 days 7.5 mL 05/17/2025 amoxicillin-clavul anate (AUGMENTIN) 875-125 mg per tabletIndications: Acute frontal sinusitis, recurrence not specified Take 1 tablet by mouth 2 (two) times a day for 7 days 14 tablet 05/17/2025 documented in this encounter Progress Notes * Africa Lindsay NP - 05/17/2025 9:30 AM CDT Images from the original note were not included. Subjective/Objective Patient ID: Precious Damian is a 80 y.o. female. This patient has verbally consented to recording this visit in order to utilize AI technology in generating this note. Chief Complaint Ear Problem (Was here Wednesday, for a cough and thinks she has a sinus infection, and pink eye, she now has a really bad ear infection in her right ear, started 3 days ago ) History of Present Illness Precious Damian is an 80 year old female who presents with symptoms of a sinus infection following a viral illness. She initially experienced crusting and redness of her eyes, suspecting conjunctivitis, and discontinued prescribed medication due to severe itching. Her symptoms then progressed to throbbing pain in her right ear and head, particularly in the sinus area. She has a persistent productive cough and exp eriences chills, sweats, and possible fever, as indicated by wearing heavy clothing in warm temperatures. She takes Claritin for symptom management. She is not allergic to antibiotics but cannot taketheophylline. She recently returned from a cruise, which she suspects may have contributed to her illness. Patient states there is only 1 antibiotic that works for her and she is unsure what the nameof it is. Review of Systems All other systems reviewed and are negative. Physical Exam HEENT: Right ear canal swollen with red inflamed papule. CHEST: Lungs clear to auscultation bilaterally. Physical Exam Vitals and nursing note reviewed. Constitutional: General: She is awake. She is not in acute distress. Appearance: Normal appearance. HENT: Head: Normocephalic and atraumatic. Right Ear: Tympanic membrane and ear canal normal. Swelling and tenderness present. No drainage. Nomiddle ear effusion. There is no impacted cerumen. Tympanic membrane is not injected, scarred, perforated, erythematous, retracted or bulging. Left Ear: Tympanic membrane and ear canal normal. Nose: Congestion and rhinorrhea present. Right Sinus: Frontal sinus tenderness present. No maxillary sinus tenderness. Left Sinus: No maxillary sinus tenderness or frontal sinus tenderness. Mouth/Throat: Lips: Lutcher. Mouth: Mucous membranes are moist. Tongue: Tongue does not deviate from midline. Pharynx: Uvula midline. No pharyngeal swelling, oropharyngeal exudate, posterior oropharyngeal erythema or uvula swelling. Tonsils: No tonsillar exudate or tonsillar abscesses. Eyes: General: Lids are normal. Pupils: Pupils are equal, round, and reactive to light. Cardiovascular: Rate and Rhythm: Normal rate and regular rhythm. Pulses: Normal pulses. Heart sounds: Normal heart sounds. Pulmonary: Effort: Pulmonary effort is normal. No respiratory distress. Breath sounds: Normal breath sounds. No decreased breath sounds, wheezing, rhonchi or rales. Musculoskeletal: Cervical back: Full passive range of motion without pain, normal range of motion and neck supple. Lymphadenopathy: Cervical: No cervical adenopathy. Skin: General: Skin is warm and dry. Neurological: Mental Status: She is alert and oriented to person, place, and time. Gait: Gait normal. Psychiatric: Behavior: Behavior is cooperative. Vitals: 05/17/25 0932 BP: 118/74 Pulse: 81 Resp: 20 Temp: 36.2 ??C (97.2 ??F) SpO2: 96% Weight: 66 kg (145 lb 9.6 oz) Height: 162.6 cm (5' 4.02) No results found. No past medical history on file. Current Outpatient Medications: alendronate (FOSAMAX) 70 mg tablet, Take 1 tablet (70 mg total) by mouth once a week, Disp: , Rfl: atorvastatin (LIPITOR) 80 mg tablet, Take 1 tablet (80 mg total) by mouth daily, Disp: , Rfl: Dupixent Pen 300 mg/2 mL pen injector, , Disp: , Rfl: levothyroxine (SYNTHROID) 50 mcg tablet, Take 1 tablet (50 mcg total) by mouth daily, Disp: , Rfl: losartan (COZAAR) 25 mg tablet, Take 1 tablet (25 mg total) by mouth every morning, Disp: , Rfl: venlafaxine XR (EFFEXOR-XR) 150 mg 24 hr capsule, Take 1 capsule (150 mg total) by mouth daily, Disp: , Rfl: amoxicillin-clavulanate (AUGMENTIN) 875-125 mg per tablet, Take 1 tablet by mouth 2 (two) times a day for 7 days, Disp: 14 tablet, Rfl: 0 atorvastatin (LIPITOR) 40 mg tablet, Take 1 tablet (40 mg total) by mouth nightly (Patient not taking: Reported on 05/13/2025), Disp: , Rfl: ciprofloxacin-dexAMETHasone (CIPRODEX) otic suspension, Administer 4 drops into the right ear 2 (two) times a day for 7 days, Disp: 7.5 mL, Rfl: 0 famotidine (PEPCID) 20 mg tablet, Take 1 tablet (20 mg total) by mouth 2 (two) times a day for 14 days (Patient not taking: Reported on 05/13/2025), Disp: 28 tablet, Rfl: 0 hydrocortisone 2.5 % cream, Apply topically 2 (two) times a day (Patient not taking: Reported on 05/17/2025), Disp: 30 g, Rfl: 0 loratadine (CLARITIN) 10 mg tablet, Take 1 tablet (10 mg total) by mouth daily for 14 days, Disp: 14 tablet, Rfl: 0 ofloxacin (OCUFLOX) 0.3 % ophthalmic solution, instill 1 drop in both eyes every 4 hours for 2 days, then 2 drops 4 times daily on days 3 through 7 (Patient not taking: Reported on 05/17/2025), Disp: 10 mL, Rfl: 0 polymyxin B-trimethoprim (POLYTRIM) ophthalmic solution, Administer 1 drop into both eyes every 4 (four) hours while awake for 7 days (Patient not taking: Reported on 05/17/2025), Disp: 10 mL, Rfl: 0 triamcinolone (KENALOG) 0.1 % ointment, Apply topically 2 (two) times a day for 10 days, Disp: 30 g, Rfl: 0 Allergies Allergen Reactions Mold Sneezing Cat Dander Eye irritation Pollen Extracts Other (See comments) Ragweed Sneezing Theophylline Other (See comments) Increased heart rate Irregular heart beatr Social History Tobacco Use Smoking status: Not on file Smokeless tobacco: Not on file Substance and Sexual Activity Drug use: Not on file Sexual activity: Not on file Alcohol Use: Not on file No past surgical history on file. Procedures Assessment/Plan 1. Acute frontal sinusitis, recurrence not specified (Primary) - amoxicillin-clavulanate (AUGMENTIN) 875-125 mg per tablet; Take 1 tablet by mouth 2 (two) times aday for 7 days Dispense: 14 tablet; Refill: 0 2. Acute otitis externa of right ear, unspecified type - ciprofloxacin-dexAMETHasone (CIPRODEX) otic suspension; Administer 4 drops into the right ear 2 (two) times a day for 7 days Dispense: 7.5 mL; Refill: 0 Results DIAGNOSTIC Ear examination: Swollen ear canal with erythematous papule (05/17/2025) Assessment & Plan Sinusitis Acute sinusitis with nasal congestion, cough, and headache. Augmentin prescribed for bacterial sinusitis, with consideration of viral etiology. Reassessment necessary if no improvement in 48-72 hours. - Prescribe Augmentin. - Advise monitoring symptoms and contacting ENT if no improvement in 48-72 hours. - Discuss potential viral nature and expected resolution time. Otitis externa Right ear canal swelling with inflamed papule, likely due to minor infection or trauma. Antibiotic and steroid ear drops prescribed. ENT evaluation if symptoms persist. - Prescribe antibiotic and steroid ear drops. - Advise follow-up with ENT if symptoms persist after treatment. Conjunctivitis Crusting and redness of eyes, initially improved but worsened with itching. Re- evaluation advised if symptoms persist or worsen. - Monitor eye symptoms and consider re-evaluation if symptoms persist or worsen. Education Sinus Infection -Take and finish your antibiotic prescription as directed. -You may try: Nasal saline wash, either Neti Pot or Sinus Rinse DAILY or a saline nasal spray 3-4 times a day. Guaifenesin expectorants (Maximum Strength Mucinex, Robitussin, store brand) to loosen secretions. For cough you can use dextromethorphan (Delsym syrup, Robitussin cough capsules or store brand). Dextromethorphan is considered safe for and breast feeding women. You may try decongestants such as Sudafed (purchase at pharmacy) or Sudafed PE for congestion relief. Decongestants can keep you awake at night. Do not use decongestants if you have high blood pressure or if you are . If you have high blood pressure you can take otc Coricidin per package directions -Increase fluid intake: drink 2 liters (2 quarts) of non-caffeinated, non- alcoholic beverages daily, drinking alcohol causes nasal and sinus membranes to swell -Steam inhalation and warm compress to face often help relieve pressure -Avoid allergens and excessively dry heat -Sleep with head of bed elevated to encourage drainage. -Use of a humidifier if environment is heated by dry forced - air system -Avoid smoking, second-hand smoke and air pollutants. -If you are not improving or worsening, or develop facial swelling, in the next 3-5 days you must RETURN to the clinic, go to your PCP, or Urgent Care/ER to be SEEN and reevaluated. No further prescriptions or refills will be given by phone without another evaluation. Disposition Treatment plan including expectations, follow up, and return precautions discussed with patient/parent, verbalizes understanding. Medication dosage, use, and potential adverse reactions discussed with patient/parent. Advised to follow up with PCP if symptoms do not resolve as expected or sooner if condition worsens. Signs/symptoms warranting ER evaluation reviewed. Patient and/or guardian was given an opportunity to ask questions, questions answered. Africa Lindsay NP This office note has been partially dictated using Njuice software, and as a result portions of the record may have been created with this software. Occasional wrong-word or '[id number]' substitutions may have occurred due to the inherent limitations of voice recognition software. Read the chartcarefully and recognize, using context, where substitutions have occurred. documented in this encounter Plan of Treatment Not on file documented as of this encounter Visit Diagnoses Diagnosis Acute frontal sinusitis, recurrence not specified- Primary Acute otitis externa of right ear, unspecified type documented in this encounter Care Teams Alterations Sewer Relationship Specialty Start Date End Date Lane Mello PA [facility] [place] [address] PCP - General Internal Medicine 04/17/25 documented as of this encounter
--- OUTSIDE RECORDS SUMMARY | 2025-05-17 19:32 | XMS_ITS | Encounter Summary ---
Author Organization [facility] Address [address] [place] [address] Care Team Providers Care Tack Puller Name Role Phone Gabriella Jensen MD Primary Care Provider Unav ailable Encounter Details Date Type Department Care Team (Late st Contact Info) Description 06/04/2005 Outpatient Historical [facility] Internal Medicine - [facility] [address] [id number] [facility] [address] [place] [address] Gabriella Jensen MD NO ADDRESS ON FILE Social History Tobacco Use Types Packs/Day Years Used Date Smoking Tobacco: Never Assessed Comments Unknown Sex and Gender Information Value Date Recorded Sex Assigned at Not on file Legal Sex Female 3:58 AM DENTAL HYGIENIST Gender Identity Not on file Sexual Orientation Not on file documented as of this encounter Plan of Treatment Not on file documented as of this encounter Visit Diagnoses Not on filedocumented in this encounter Additional Health Concerns Infection Onset Date Last Indicated Resolved Time R/O COVID-19 10/23/2020 10/23/2020 10/24/2021 9:14 PM DENTAL HYGIENIST documented as of this encounter Care Teams Tack Puller Relationship Specialty Start Date End Date Gabriella Jensen MD PCP - General Internal Medicine 03/29/15 documented as of this encounter
--- OUTSIDE RECORDS SUMMARY | 2025-05-17 19:32 | XMS_ITS | Encounter Summary ---
Author Organization [facility] Healthcare Address [address] [place] [address] Care Team Providers Care Garage Door Opener Installer Name Role Phone Sergio Tamayo MD Primary Care Provider Lane Mello Primary Care Provider + Encounter Details Date Type Department Care Team ([facility] Contact Info) Description 02/24/2018 Orders Only [facility] Information Management [address] [place] [id number] Scanning, Provider Social History Tobacco Use Types Packs/Day Years Used Date Smoking Tobacco: Never Assessed Comments Unknown Sex and Gender Information Value Date Recorded Sex Assigned at Not on file Legal Sex Female 3:31 PM FACILITIES MANAGER Gender Identity Not on file Sexual Orientation Not on file documented as of this encounter Plan of Treatment Not on file documented as of this encounter Procedures Procedure Name Priority Date/Time Associated Diagnosis Comments CARDIOLOGY DOCUMENT SCAN 02/24/2018 1:21 AM CDT documented in this encounter Results * Cardiology Document Scan (02/24/2018 1:21 AM CDT) Anatomical Region Laterality Modality Other us Provider Scanning CV CARDIAC SERVICES PROCEDURES Final Result documented in this encounter Visit Diagnoses Not on filedocumented in this encounter Additional Health Concerns Infection Onset Date Last Indicated Resolved Time COVID: Suspected 08/28/2024 08/28/2024 08/28/2024 10:17 PM CDT COVID: Suspected 05/13/2025 05/13/2025 05/13/2025 6:33 PM CDT documented as of this encounter Care Teams Garage Door Opener Installer Relationship Specialty Start Date End Date Sergio Tamayo MD [address] [facility] [address] [place] [address] PCP - General 02/26/17 04/16/25 Lane Mello [place] [facility] [place] [address] PCP - General Internal Medicine 04/17/25 documented as of this encounter
--- OUTSIDE RECORDS SUMMARY | 2025-05-17 19:32 | XMS_ITS | Encounter Summary ---
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 ALTERNATIVE PHONE NUMBER: [phone] SECTION 1: REQUESTED ACTION joanne 07/13/06 at 11:17 am: MEDICATION REQUEST: MEDICATION REQUEST: Patient requests a refill. MEDICATIONS: EFFEXOR ORAL TABLET 75 MG, 1 po qd, 90 Dispensed, status: NEW HISTORY, 07/13/2006. needs written 90day supply mailed to her at: [address] [place] [address]. [id number] Medication originally prescribed by previous MD who is now retired. DOCTOR`S RESPONSE: jesse 07/13/06 at 11:46 am MEDICATIONS: EFFEXOR ORAL TABLET 75 MG, 1 po qd, 90 Dispensed, 3 Fills, status: CONTINUED, 07/13/2006. Printed FINAL ACTION: polina 07/13/06 at 04:02 pm Rx mailed to pt Electronically Signed by: Georgie Harper on Thursday, July 13, 2006 documented in this encounter Plan of Treatment Not on file documented as of this encounter Visit Diagnoses Not on filedocumented in this encounter Additional Health Concerns Infection Onset Date Last Indicated Resolved Time R/O COVID-19 10/23/2020 10/23/2020 10/24/2021 9:14 PM POULTRY SERVICE TECHNICIAN documented as of this encounter Care Teams House Rn Relationship Specialty Start Date End Date Gabriella Jensen MD PCP - General Internal Medicine 03/29/15 documented as of this encounter
--- OUTSIDE RECORDS SUMMARY | 2025-05-17 19:32 | XMS_ITS | Encounter Summary ---
Author Organization [facility] Address [address] [place] [address] Care Team Providers Care Rn Heart Name Role Phone Gabriella Jensen MD Primary Care Provider Unav ailable Encounter Details Date Type Department Care Team (Late st Contact Info) Description 09/16/2006 Outpatient Historical [facility] Internal Medicine - [facility] [address] [address] [facility] [address] [place] [address] Gabriella Jensen MD NO ADDRESS ON FILE Social History Tobacco Use Types Packs/Day Years Used Date Smoking Tobacco: Never Assessed Comments Unknown Sex and Gender Information Value Date Recorded Sex Assigned at Not on file Legal Sex Female 3:58 AM 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
--- OUTSIDE RECORDS SUMMARY | 2025-05-17 19:32 | XMS_ITS | Encounter Summary ---
Author Organization [facility] Address [address] [place] [address] Care Team Providers Care Group Dynamics Instructor Name Role Phone Gabriella Jensen MD Primary Care Provider Unav ailable Encounter Details Date Type Department Care Team (Late st Contact Info) Description 09/08/[address] [facility] Internal Medicine - 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 ALTERNATIVE PHONE NUMBER: [phone] SECTION 1: REQUESTED ACTION polina 09/08/06 at 02:05 pm: MEDICATION REQUEST: MEDICATIONS: ZOCOR ORAL TABLET 40 MG, 1 Every Day, 90 Dispensed, 3 Fills, status: NEW PRESCRIPTION, 08/10/2005. mail order Rx mail to pt DOCTOR`S RESPONSE: eleni 09/08/06 at 04:15 pm MEDICATIONS: ZOCOR ORAL TABLET 40 MG, 1 Every Day, 90 Dispensed, 1 Fills, status: CONTINUED, 09/08/2006. due to check lipids, alt, ast. FINAL ACTION: polina 09/08/06 at 04:31 pm LMTCB. Rx mailed to pt polina 09/14/06 3:58 pm Spoke with pt/ She has appt 09/16 and will get labs done then Electronically Signed by: Georgie Harper on Thursday, September 14, 2006 documented in this encounter Plan of Treatment Not on file documented as of this encounter Visit Diagnoses Not on filedocumented in this encounter Additional Health Concerns Infection Onset Date Last Indicated Resolved Time R/O COVID-19 10/23/2020 10/23/2020 10/24/2021 9:14 PM LOFT PATTERNMAKER documented as of this encounter Care Teams Group Dynamics Instructor Relationship Specialty Start Date End Date Gabriella Jensen MD PCP - General Internal Medicine 03/29/15 documented as of this encounter
--- OUTSIDE RECORDS SUMMARY | 2025-05-17 19:32 | XMS_ITS | Encounter Summary ---
Author Organization [facility] Address [address] [place] [address] Care Team Providers Care Worm Sorter Name Role Phone Gabriella Jensen MD Primary Care Provider Unav ailable Encounter Details Date Type Department Care Team (Late st Contact Info) Description 09/26/2007 Orders Only [facility] Internal Medicine - [facility] [address] [address] [facility] [address] [place] [address] Gabriella Jensen MD NO ADDRESS ON FILE Social History Tobacco Use Types Packs/Day Years Used Date Smoking Tobacco: Never Assessed Comments Unknown Sex and Gender Information Value Date Recorded Sex Assigned at Not on file 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 TOBACCO USE Patient does not currently use tobacco. MEDICATIONS: Medication list current. CHIEF COMPLAINT Seen for a preventive examination. HISTORY: HISTORY: Presents for her yearly PE. Her main complaint is allergies. She has been seeing an mortgage analyst and is currently receiving allergy shots, but she still has a lot of sinus pressure and drainage. She is just recovering from 3 days of a viral illness with body aches, sinus pressure, drainage and nausea and is feeling much better today. No purulent drainage or dental pain. Nasarel worked well for her in the past but her insurance is not covering it. CURRENT MEDICATION LIST: FOSAMAX ORAL TABLET 70 MG, WEEKLY CLARINEX ORAL TABLET 5 MG, 1 po qd ASPIR-81 ORAL TABLET ENTERIC COATED 81 MG, 1 po qd CENTRUM ORAL TABLET, 1 po qd ZOCOR ORAL TABLET 40 MG, 1 Every Day EFFEXOR ORAL TABLET 75 MG, 1 po qd ROS: GENERAL: Normal activity and energy level, no change in appetite. No major weight gain or loss. No malaise, chills, fever, diaphoresis. EYES: No vision changes or diplopia. ENT: NASAL CONGESTION PRESENT, SINUS CONGESTION NOTED. CARDIAC: No chest pain, palpitations, orthopnea, dyspnea on exertion, or paroxysmal nocturnal dyspnea. RESPIRATORY: No dyspnea, cough, hemoptysis or wheezing. : No frequency, urgency, hematuria or dysuria. GI: No abdominal pain, nausea, vomiting, diarrhea, constipation, melena, or hematochezia. FAMILY HISTORY: FATHER: The father's health status is unknown. MOTHER: The mother is . Illnesses: Alzheimer's disease, hypercholesterolemia. SIBLINGS: None. CHILDREN: Two children. Healthy. SOCIAL HISTORY: TOBACCO USE: Has no significant smoking history. EXERCISES: The patient exercises. The exercise is predominantly walking. PHYSICAL EXAMINATION: CONSTITUTIONAL: GENERAL APPEARANCE: female, appears stated age. EYES: PUPILS: Pupils equal and normally reactive to light and accommodation. EARS, NOSE, MOUTH AND THROAT: EARS: Tympanic membranes shiny without retraction. Canals unremarkable. Hearing grossly normal. ORAL: Inspection of gums, lips, palate, and teeth normal. No scars, lesions, or masses. Oral mucosaunremarkable with non-inflamed posterior pharynx. NECK/THYROID: Trachea midline. No thyroid enlargement, tenderness, or mass. No supraclavicular or cervical adenopathy. RESPIRATORY: Clear to auscultation and percussion. Normal respiratory effort. CARDIOVASCULAR: CARDIAC: Regular rhythm. No murmurs, rubs, or gallops. ARTERIAL: Normal carotids, no renal artery bruits detected. EDEMA/VARICOSITIES OF EXTREMITIES: No edema or varicosities. BREAST/CHEST: Breasts without tenderness, discharge or masses. No axillary adenopathy. LYMPHATICS: GASTROINTESTINAL: ABDOMEN: Soft, non-tender, without masses. Bowel sounds active. LIVER/SPLEEN/KIDNEY: No hepatosplenomegaly, tenderness or nodularity. Kidneys not palpable. RECTAL: RECTAL EXAM PERFORMED BY THE PATIENT'S PROJECT STRUCTURAL ENGINEER. SKIN: SKIN: has some ring-like erythematous patches on back and right arm. ASSESSMENT/PLAN: 272.4-HYPERLIPIDEMIA ASSESSMENT: Will not change medication, continue to monitor for complications. Regular exercise wasencouraged. 477.9-RHINITIS ALLERGIC UNSPECIFIED ASSESSMENT: The patient's allergic rhinitis has worsened. Will change medication. MEDICATIONS: ASTELIN NASAL SOLUTION 137 MCG/SPRAY, 2 sprays each nostril BID, 1 Dispensed, 3 Fills, status: NEW PRESCRIPTION, 09/26/2007. SINGULAIR ORAL TABLET 10 MG, 1 Every Day, 30 Dispensed, 3 Fills, status: NEW PRESCRIPTION, 09/26/2007. CLARINEX ORAL TABLET 5 MG, 1 po qd, status: DISCONTINUED HISTORY, 09/26/2007. 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 HEALTH MAINTENANCE: LAST PAP DATE: . LAST MAMMOGRAM DATE: 2006. LAST BONE DENSITY DATE: . LAST FLU VACCINE:2006 PREVENTIVE COUNSELING The patient was counseled regarding regular self- examination of the breasts on a monthly basis, regular sustained exercise for at least 30 minutes 3-4 times per week, routine screening interval for mammogram as recommended by the [employer] and ACOG, diagnosis, treatment, and prevention of osteoporosis, importance of regular PAP smears, regular use of seat belts, tobacco use. RETURN VISIT : Patient instructed to return in 6 months. Electronically Signed by: Gabriella Jensen MD on Wednesday, September 26, 2007 documented in this encounter Plan of Treatment Not on file documented as of this encounter Visit Diagnoses Not on filedocumented in this encounter Additional Health Concerns Infection Onset Date Last Indicated Resolved Time R/O COVID-19 10/23/2020 10/23/2020 10/24/2021 9:14 PM CONCRETE PRODUCTS DISPATCHER documented as of this encounter Care Teams Worm Sorter Relationship Specialty Start Date End Date Gabriella Jensen MD PCP - General Internal Medicine 03/29/15 documented as of this encounter
--- OUTSIDE RECORDS SUMMARY | 2025-05-17 19:32 | XMS_ITS | Clinical Summary ---
Author Organization [facility] Address [address] [place] [address] Care Team Providers Care Learning And Development Assistant Name Role Phone Lane Mello Primary Care Provider + Allergies Active Allergy Reactions Criticality Noted Date Comments Cat Dander Eye irritation Low 08/28/2024 Mold Sneezing Medium 08/28/2024 Pollen Extracts Other (See comments) Low 08/05/2006 Ragweed Sneezing Low 08/28/2024 Theophylline Other (See comments) Low 08/05/2006 Increased heart rate Irregular heart beatr Medications alendronate (FOSAMAX) 70 mg tablet Take 1 tablet (70 mg total) by mouth once a week 02/14/20 24 Active atorvastatin (LIPITOR) 40 mg tablet Take 1 tablet (40 mg total) by mouth nightly 11/25/20 20 Active atorvastatin (LIPITOR) 80 mg tablet Take 1 tablet (80 mg total) by mouth daily 04/09/20 24 Active levothyroxine (SYNTHROID) 50 mcg tablet Take 1 tablet (50 mcg total) by mouth daily Active losartan (COZAAR) 25 mg tablet Take 1 tablet (25 mg total) by mouth every morning 02/06/20 24 Active venlafaxine XR (EFFEXOR-XR) 150 mg 24 hr capsule Take 1 capsule (150 mg total) by mouth daily Active ofloxacin (OCUFLOX) 0.3 % ophthalmic solutionIndication s:Acute bacterial conjunctivitis of both eyes instill 1 drop in both eyes every 4 hours for 2 days, then 2 drops 4 times daily on days 3 through 7 10 mL 04/17/20 24 Active Additional Information Patient not taking.Reported on 05/17/2025 loratadine (CLARITIN) 10 mg tabletIndications: Rash Take 1 tablet (10 mg total) by mouth daily for 14 days 14 tablet 06/16/20 24 Active famotidine (PEPCID) 20 mg tabletIndications: Rash Take 1 tablet (20 mg total) by mouth 2 (two) times a day for 14 days 28 tablet 06/16/20 24 Active Additional Information Patient not taking.Reported on 05/13/2025 hydrocortisone 2.5 % creamIndications:R marizol Apply topically 2 (two) times a day 30 g 06/16/20 24 Active Additional Information Patient not taking.Reported on 05/17/2025 Dupixent Pen 300 mg/2 mL pen injector 04/13/20 25 Active triamcinolone (KENALOG) 0.1 % ointment Apply topically 2 (two) times a day for 10 days 30 g 04/17/20 25 Active polymyxin B-trimethoprim (POLYTRIM) ophthalmic solution Administer 1 drop into both eyes every 4 (four) hours while awake for 7 days 10 mL 05/15/20 25 025 Active Additional Information Patient not taking.Reported on 05/17/2025 amoxicillin-clavul anate (AUGMENTIN) 875-125 mg per tabletIndications: Acute frontal sinusitis, recurrence not specified Take 1 tablet by mouth 2 (two) times a day for 7 days 14 tablet 05/17/20 25 025 Active ciprofloxacin-dexA METHasone (CIPRODEX) otic suspensionIndicati ons:Acute otitis externa of right ear, unspecified type Administer 4 drops into the right ear 2 (two) times a day for 7 days 7.5 mL 05/17/20 25 025 Active mupirocin (BACTROBAN) 2 % ointment Apply topically 3 (three) times a day for 10 days 22 g 04/17/20 25 025 Active Problems No known active problems Encounters Date Type Department Care Team Description 05/17/2025 9:30 AM CDT Office Visit [facility] at [address] [address] Africa Lindsay NP Acute frontal sinusitis, recurrence not specified (Primary Dx); Acute otitis externa of right ear, unspecified type 05/15/2025 Telephone [facility] at [address] [address] PonceTierra silverLYNN 05/13/2025 6:15 PM CDT Office Visit [facility] Medical [facility] at [address] [address] Fiona Arredondo PA Acute cough (Primary Dx) 04/17/2025 3:45 PM CDT Office Visit [facility] Medical [facility] at [address] [address] Africa Lindsay NP Local skin infection (Primary Dx); Insect bite of neck, initial encounter; Insect bite of left upper extremity, initial encounter; Insect bite of lower extremity, unspecified laterality, initial encounter from Last 3 Months Social History Tobacco Use Types Packs/Day Years Used Date Smoking Tobacco: Never Assessed Comments Unknown Sex and Gender Information Value Date Recorded Sex Assigned at Not on file Legal Sex Female 3:31 PM 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 Gender Identity Not on file Sexual Orientation Not on file Obstetrics History Last Filed Vital Signs Vital Sign Reading [...] Mass Index 24.98 05/17/2025 9:32 AM CDT Plan of Treatment Health Maintenance Due Date Last Done Comments Depression Screening 1945 Fall Risk Assessment 1945 Hepatitis B Screening 1963 Well Visit 65+ 2010 DTaP/Tdap/Td Vaccine (2 - Td or Tdap) 01/21/2021 01/21/2011, 09/16/2006 Osteoporosis Screening-Bone Density Scan 03/23/2021 03/23/2019, 03/23/2019, 02/26/2017, Additional history exists Covid-19 Vaccine (7 2023- 5 season) 2024 07/23/2023, 10/20/2022, 05/07/2022, Additional history exists Influenza Vaccine (Season Ended) 2025 08/13/2023, 10/07/2022, 08/31/2022, Additional history exists Pneumococcal vaccine 65+ Completed 015, 07/04/2012, 01/21/2011 Zoster Vaccine Completed 12/01/2020, 07/30, 04/12/2018, Additional history exists Procedures Procedure Name Priority Date/Time Associated Diagnosis Comments POC INFLUENZA A/B, COVID-19 ANTIGEN Routine 05/13/2025 6:32 PM CDT Acute cough from Last 3 Months Results * POC Influenza A/B, COVID-19 antigen (05/13/2025 6:32 PM CDT) Influenza A Ag, POC Negative Negative [facility] Influenza B Ag, POC Negative Negative [facility] COVID-19 Ag POC Presumptive Negative Presumptive Negative, Invalid [facility] Nasal 05/13/2025 6:32 PM CDT us Fiona SALINAS POINT OF CARE TEST ORDER KEIKO Final Result [facility] [address] [place] [address], [facility] from Last 3 Months Insurance MEDICARE [facility] Care Teams Learning And Development Assistant Relationship Specialty Start Date End Date Lane Mello PA [facility] [place] [address] PCP - General Internal Medicine 04/17/25
--- OUTSIDE RECORDS SUMMARY | 2025-05-17 19:32 | XMS_ITS | Encounter Summary ---
Author Organization [facility] Address [address] [place] [address] Care Team Providers Care Car Body Inspector Name Role Phone Gabriella Jensen MD Primary Care Provider Unav ailable Encounter Details Date Type Department Care Team (Late st Contact Info) Description 09/16/2006 Outpatient Historical [facility] Internal Medicine - [facility] [address] [address] [facility] [address] [place] [address] Gabriella Jensen MD NO ADDRESS ON FILE Social History Tobacco Use Types Packs/Day Years Used Date Smoking Tobacco: Never Assessed Comments Unknown Sex and Gender Information Value Date Recorded Sex Assigned at Not on file Legal Sex Female 3:58 AM 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
--- OUTSIDE RECORDS SUMMARY | 2025-05-17 19:32 | XMS_ITS | Referral Summary ---
Author Organization [facility] Address [address] [place] [address] Care Team Providers Care Education Technician Name Role Phone Lane Mello Primary Care Provider + Encounters Date Type Department Care Team Description 05/17/2025 9:30 AM CDT Office Visit [facility] at [address] [address] Africa Lindsay NP Acute frontal sinusitis, recurrence not specified (Primary Dx); Acute otitis externa of right ear, unspecified type 05/15/2025 Telephone [facility] Medical [facility] at [address] [address] Tierra Serra LPN 05/13/2025 6:15 PM CDT Office Visit [facility] at [address] [address] Fiona Arredondo PA Acute cough (Primary Dx) 04/17/2025 3:45 PM CDT Office Visit [facility] [address] [address] Africa Lindsay NP Local skin infection (Primary Dx); Insect bite of neck, initial encounter; Insect bite of left upper extremity, initial encounter; Insect bite of lower extremity, unspecified laterality, initial encounter from Last 3 Months Allergies Active Allergy Reactions Criticality Noted Date [...] 025 Active Problems No known active problems Social History Tobacco Use Types Packs/Day Years Used Date Smoking Tobacco: Never Assessed Comments Unknown Sex and Gender Information Value Date Recorded Sex Assigned at Not on file Legal Sex Female 3:31 PM PLUG MAKER Gender Identity Not on file Sexual Orientation [...] 05/17/2025 9:32 AM CDT Plan of Treatment Not on file Procedures Procedure Name Priority Date/Time Associated Diagnosis Comments POC INFLUENZA A/B, COVID-19 ANTIGEN Routine 05/13/2025 6:32 PM CDT Acute cough from Last 3 Months Results * POC Influenza A/B, COVID-19 antigen (05/13/2025 6:32 PM CDT) Influenza A Ag, POC Negative Negative [facility] [place] Influenza B Ag, POC Negative Negative [facility] [place] [facility] COVID-19 Ag POC Presumptive Negative Presumptive Negative, Invalid [facility] [place] [facility] Nasal 05/13/2025 6:32 PM CDT Fiona SALINAS POINT OF CARE TEST ORDER KEIKO Final Result [facility] EDW [facility] [place] [address], [facility] from Last 3 Months Insurance MEDICARE [facility] [place] Care Teams Education Technician Relationship Specialty Start Date End Date Lane Mello PA [address] [place] [address] PCP - General Internal Medicine 04/17/25
--- OUTSIDE RECORDS SUMMARY | 2025-05-17 19:32 | XMS_ITS | Clinical Summary ---
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 Active CYANOCOBALAMIN, VITAMIN B-12, (VITAMIN B-12 ORAL) Take 1,000 mg by mouth daily. Active LEVOTHYROXINE 50 mcg tablet TAKE 1 TABLET BY MOUTH EVERY DAY 90 Tablet 1 11/25/2020 Active atorvastatin (LIPITOR) 40 mg tablet TAKE 1 TABLET BY MOUTH IN THE EVENING 90 Tablet 1 11/25/2020 Active venlafaxine (EFFEXOR XR) 75 mg Extended Release 24 hour capsule TAKE 1 CAPSULE(75 MG) BY MOUTH DAILY IN ADDITION TO THE 150 MG DOSE DAILY 90 Capsule 01/30/2021 Active venlafaxine 150 mg Extended Release 24 hour tablet TAKE 1 TABLET(150 MG) BY MOUTH DAILY 90 Tablet 02/24/2021 Active Active Problems Problem Noted Date Diagnosed Date Grief 02/02/2019 Syncope 02/02/2019 Overview (02/02/2019): 01/2018, 01/2019 Vasovagal pattern due to abd pain. Mixed hyperlipidemia 01/23/2016 Acquired hypothyroidism 01/23/2016 Generalized anxiety disorder 07/19/2015 Essential hypertension 04/15/2015 Osteopenia 03/14/2012 Granuloma annulare 11/05/2008 Allergic rhinitis, cause unspecified 09/26/2007 Benign neoplasm of colon 11/29/2002 Resolved Problems Problem Noted Date Diagnosed Date Resolved Date Precordial pain 12/25/2016 12/20/2017 Abnormal stress test 12/25/2016 018 Hypothyroidism 01/05/2011 01/23/2016 Dermatophytosis of the body 09/26/2007 11/05/2008 Encounter for long-term (cur rent) use of other medications 03/30/2007 11/05/2008 Routine general medical exam ination at a health care facility 09/16/2006 11/05/2008 Screening for diabetes mellitus 09/16/2006 11/05/2008 Need for prophylactic vaccin ation with tetanus-diphtheria (Td) 09/16/2006 11/05/2008 Other and unspecified hyperlipidemia 08/05/2006 01/23/2016 Anxiety state, unspecified 08/05/2006 0 08/12/2015 Disorder of bone and cartilage, unspecified 08/05/2006 08/12/2015 Immunizations Immunization Administration Dates Next Due (ADACEL/BOOSTRIX)(10 YR UP) TDAP VACCINE, 0.5ML, IM 01/21/2011 (PNEUMOVAX 23)(50 YRS UP) PN EUMOCOCCAL POLYSACCHARIDE (PPV23) 0.5 ML, IM 01/21/2011 (PREVNAR 13)(6 WKS UP) PNEUM OCOCCAL CONJUGATE (PCV13) 0.5 ML, IM 07/04/2015 (SHINGRIX)(50 YRS UP) ZOSTER VACCINE RECOMBINANT, 0.5 ML, IM 08/14/2020,04/12/2018,02/03/2018 (TDVAX)(7 YRS UP) TETANUS AN D DIPHTHERIA TOXOIDS, ADSORBED (2 LF OF TETANUS TOXOID AND 2 LF OF DIPHTHERIA TOXOID), 0.5ML (PF), IM 09/16/2006 INFLUENZA VACCINE HIGH DOSE QUADRIVALENT 65 YR UP PF IM 08/22/2020 Influenza Seasonal Unspecifi ed Formulation IM 09/30/2015,09/19/2014,08/29/2013 Influenza Vaccine High Dose 65+ Yrs IM 9,08/16/2018,10/05/2017 Influenza Vaccine Tri Split 4+ Im 09/25/2015,11/2013 PNEUMOVAX (PPSV23) pneumococ lou polysaccharide 23-valent Vaccine 07/04/2012 PREVNAR (PCV13) pneumococcal 13-valent conjugate Vaccine 07/04/2015 Family History Medical History Relation Name Comments Healthy Daughter Unknown Father Breast Cancer Maternal Aunt High Cholesterol Mother Other Mother demintia Stroke Mother age 76 Healthy Son Colon Cancer Neg Hx Relation Name Status Comments Daughter Alive Father Maternal Aunt Maternal Grandfather Maternal Grandmother Mother Paternal Grandfather Paternal Grandmother Son Alive Social History Tobacco Use Types Packs/Day Years Used Date Smoking Tobacco: Never Smokeless Tobacco: Never Alcohol Use Standard Drinks/Week Comments No 0 (1 standard drink = 0.6 oz pur e alcohol) Comments No Sex and Gender Information Value Date Recorded Sex Assigned at Not on file 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 Gender Identity Not on file Sexual Orientation Not on file Occupation Industry Job Start Date Job End Date Not on file Not on file Not on file Not on file Last Filed Vital Signs Vital Sign Reading Time Taken Comments Blood Pressure 122/75 10/23/2020 11:53 AM 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 Pulse 77 10/23/2020 11:53 AM 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 Temperature 36.6 C (97.8 F) 10/23/2020 11:53 AM 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 Respiratory Rate 17 02/20/2019 1:46 PM CDT Oxygen Saturation 99% 08/22/2020 12:13 PM CDT Inhaled Oxygen Concentration - - Weight 65.8 kg (145 lb) 10/23/2020 11:53 AM 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 Height 162.6 cm (5' 4) 02/20/2019 1:46 PM CDT Body Mass Index 24.89 02/20/2019 1:46 PM CDT Plan of Treatment Health Maintenance Due Date Last Done Comments RSV VACCINE (60+ or ) (1 - 1-dose 75+ series) 2020 DTAP/TDAP/TD VACCINES (2 - T d or Tdap) 01/21/2021 01/21/2011, 09/16/2006 COLORECTAL SCREENING 02/05/2022 02/05/2017, 02/05/2017, 02/05/2017, Additional history exists OSTEOPOROSIS SCREENING 03/23/2024 9, 03/23/2019, 02/26/2017, Additional history exists INFLUENZA VACCINE (#1) 2024 0, 10/15/2019, 08/16/2018, Additional history exists PNEUMOCOCCAL VACCINE 50+ YEARS Completed 0 07/04/2015, 07/04/2015, 07/04/2012, Additional history exists ZOSTER VACCINE Completed 08/14/2020, 03/29, 02/03/2018 Procedures Procedure Name Priority Date/Time Associated Diagnosis Comments XR DEXA BONE DENSITY AXIAL 1 OR MORE SITES Routine 03/23/2019 1:57 PM CDT Postmenopausal status ENDOSCOPY, COLON, SCREENING Routine 02/05/2017 from Last 3 Months or Most Recently Relevant to Health Maintenance Results * XR DEXA BONE DENSITY AXIAL 1 OR MORE SITES (03/23/2019 1:57 PM CDT) Anatomical Region Laterality Modality Digital Radiogra phy 03/23/2019 1:57 PM CDT Impressions 03/23/2019 2:06 PM CDT IMPRESSION: This is a summary page. Please refer to the complete detailed report found in the Imaging Section of the [facility] EMR. Osteopenic BMD. Lumbar Spine: T-Score: -1.5 Left Femoral Neck: T-Score: -1.8 Left Total Femur: T-Score: -0.4 Right Femoral Neck: T-Score: -1.4 Right Total Femur: T-Score: -0.2 Comments: None. Statistical change: No significant decrease in BMD since the prior exam. FRAX FRACTURE RISK ASSESSMENT: (Only valid Between 40-89 Years Of Age) Risk factors: None. 10 Year Probability Of Fracture Major Osteoporotic: 12.0 % Hip: 2.6 % Comparison population: [place], Race: White A major osteoporotic fracture is defined as a fracture of the spine, forearm, hip or shoulder. Definitions: Normal: T-score above -1.0 Osteopenia T-score less than -1.0 and above -2.5 Osteoporosis: T-score <= -2.5 Follow-up Recommendations: Patients without high risk factors for osteoporosis T-score -1.0 to -1.5 - Consider repeat BMD in 5-10 years T-score -1.5 to - 2.0 - Consider repeat BMD in 3-5 years T-score -2.0 to - 2.5 - Consider repeat BMD every 2 years Patients on treatment for osteoporosis 1-2 years after initiation of treatment and every 2 years thereafter D[address] Dr[address] Ronnie Awad MD DICTATION LOCATION: 03/23/2019 2:06 PM CDT EXAMINATION: BONE DENSITY STUDY (DXA) DATE: 03/23/2019 1:57 PM HISTORY: 73 years Female. Postmenopausal. PROCEDURE: Planar images of the lumbar spine and hip(s) using a LUNAR DEXA scanner for bone mineral density determination (BMD). Prior bone density: 02/26/2017 FINDINGS: Lumbar Spine (L1-L4): T-Score: -1.5 0.997 g/sq cm Prior: 1.000 g/sq cm Left Femoral Neck: T-Score: -1.8 0.793 g/sq cm Prior: 0.788 g/sq cm Left Total Femur: T-Score: -0.4 Right Femoral Neck: T-Score: -1.4 0.839 g/sq cm Prior: 0.875 g/sq cm Right Total Femur: T-Score: -0.2 Procedure Note Ronnie Awad MD - 03/23/2019 EXAMINATION: BONE DENSITY STUDY (DXA) DATE: 03/23/2019 1:57 PM HISTORY: 73 years Female. Postmenopausal. PROCEDURE: Planar images of the lumbar spine and hip(s) using a LUNAR DEXA scanner for bone mineral density determination (BMD). Prior bone density: 02/26/2017 FINDINGS: Lumbar Spine (L1-L4): T-Score: -1.5 0.997 g/sq cm Prior: 1.000 g/sq cm Left Femoral Neck: T-Score: -1.8 0.793 g/sq cm Prior: 0.788 g/sq cm Left Total Femur: T-Score: -0.4 Right Femoral Neck: T-Score: -1.4 0.839 g/sq cm Prior: 0.875 g/sq cm Right Total Femur: T-Score: -0.2 IMPRESSION: This is a summary page. Please refer to the complete detailed report found in the Imaging Section of the [facility] EMR. Osteopenic BMD. Lumbar Spine: T-Score: -1.5 Left Femoral Neck: T-Score: -1.8 Left Total Femur: T-Score: -0.4 Right Femoral Neck: T-Score: -1.4 Right Total Femur: T-Score: -0.2 Comments: None. Statistical change: No significant decrease in BMD since the prior exam. FRAX FRACTURE RISK ASSESSMENT: (Only valid Between 40-89 Years Of Age) Risk factors: None. 10 Year Probability Of Fracture Major Osteoporotic: 12.0 % Hip: 2.6 % Comparison population: [place], Race: White A major osteoporotic fracture is defined as a fracture of the spine, forearm, hip or shoulder. Definitions: Normal: T-score above -1.0 Osteopenia T-score less than -1.0 and above -2.5 Osteoporosis: T-score <= -2.5 Follow-up Recommendations: Patients without high risk factors for osteoporosis T-score -1.0 to -1.5 - Consider repeat BMD in 5-10 years T-score -1.5 to - 2.0 - Consider repeat BMD in 3-5 years T-score -2.0 to - 2.5 - Consider repeat BMD every 2 years Patients on treatment for osteoporosis 1-2 years after initiation of treatment and every 2 years thereafter D[address] by Dr[address] 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
[2025-05-17 19:36] LABS: Basophils Percent Auto 0.4 % (0.2-1.2); Eosinophils Absolute Auto 0.1 K/mm3 (0-0.3); Eosinophils Percent Auto 1.2 % (0-4.4); Fractional Inspired Oxygen 21 %; HCO3 VBG 24.4 mEq/l (24.0-30.0); Hematocrit 40.9 % (37.0-47.0); Hemoglobin 13.4 g/dL (12.0-15.0); Immature Granulocyte Absolute 0.04 K/mm3 (0.00-0.031); Immature Granulocyte Percent A 0.4 % (0-0.5); Lymphocytes Percent Auto 6.6 % (18.3-44.2); Mean Corpuscular HGB Conc 32.8 g/dl (32-36); Mean Corpuscular Hemoglobin 30.4 pg (26-34); Mean Corpuscular Volume 92.7 fl (80-100); Mean Platelet Volume 10.3 fl (7.4-10.4); Monocytes Percent Auto 9.4 % (2.6-8.5); Neutrophils Absolute Auto 8.7 K/mm3 (1.3-6.7); PCO2 VBG 36.7 mmHg (42.0-48.0); Platelet Count Result 203 k/mm3 (150-375); Red Blood Count 4.41 M/mm3 (4.2-5.4); Red Cell Distribution Width 13.1 % (11.5-14.5); White Blood Count 10.6 K/mm3 (4.5-10.0)
[2025-05-17 19:38] LABS: Device ROOM AIR; PO2 VBG < 27.0 mmHg (35.0-45.0)
[2025-05-17 19:46] LABS: Alanine Aminotransferase 25 U/L (6-35); Albumin Level 4.2 g/dL (3.5-5.1); Alkaline Phosphatase 101 U/L (38-126); Anion Gap 10 mmol/L (4-12); Aspartate Amino Transferase 34 U/L (14-36); Bilirubin,Total 0.8 mg/dL (0.2-1.3); Blood Urea Nitrogen 15 mg/dL (7-17); Calcium 9.7 mg/dL (8.4-10.2); Carbon Dioxide 25 mmol/L (22-30); Chloride 101 mmol/L (98-107); Estimated CRCL calculation 44 ml/min; Estimated Glomerular Filt Rate > 60; Glucose 120 mg/dL (65-110); Lipase 66 U/L (23-300); Magnesium 2.1 mg/dL (1.6-2.3); Phosphorus 3.1 mg/dL (2.5-4.5); Potassium 4.1 mmol/L (3.4-5.0); Sodium 136 mmol/L (137-145); Total Protein 7.4 g/dL (6.3-8.2)
[2025-05-17 20:11] LABS: Lactic Acid Reflex 0.9 mmol/L (0.7-2.0)
[2025-05-17 20:12] LABS: Influenza A QL RT-PCR Negative (Negative); Influenza B QL RT-PCR Negative (Negative); RSV RNA, RT-PCR Negative (Negative); SARS-CoV-2 RNA PCR Negative (Negative)
[2025-05-17 20:13] LABS: Prothrombin Time 13.3 Seconds (11.1-14.7)
[2025-05-17 20:14] LABS: Partial Thromboplastin Time 32.6 Seconds (22.3-36.8)
[2025-05-17 20:38] LABS: Add Urine Microscopic? YES; Appearance Urine Clear (Clear); Bacteria Urine None Seen /hpf; Bilirubin Urine Negative (Negative); Blood Urine Negative (Negative); Color Urine Yellow (Yellow); Glucose Urine UA Negative (Negative); Ketones Urine Trace mg/dL (Negative); Leukocyte Esterase Ur 2+ LEU/UL (Negative); Need Manual Microscopic Reviewed; Nitrate Urine Negative (Negative); Non Pathogenic Casts 0-2; Protein Urine Trace mg/dL (Negative); RBC Urine 0-2 /hpf (0-2); Specific Grav Ur 1.016 (1.001-1.035); Squamous Epithelial Cell Urine None Seen /hpf (Few); Urobilinogen Urine 0.2 mg/dL (<2.0); WBC Urine 0-5 /hpf (0-3)
--- NOTE | 2025-05-17 20:59 | ED_ITS ---
HPI - General Adult General Chief complaint: Weakness Stated complaint: Weakness, n/v x 2 Time Seen by Provider: 05/17/25 18:29 History of Present Illness HPI narrative: This is an 80-year-old female presenting to ED with chief complaint of nausea vomiting and weakness. Patient went on a cruise 2 weeks ago. Afterwards she developed cold symptoms including sinus pressure and runny nose. She went to an urgent care earlier and she was prescribed a course of Augmentin for possible sinus infection. She took a dose of Augmentin and then became very nauseous and had an episode of vomiting. She denies fevers, chest pain difficulty breathing or abdominal pain. She denies urinary symptoms. No hives, throat swelling wheezing. Related Data Home Medications ?Medication ?Instructions ?Recorded ?Confirmed ?Last Taken ?Type cholecalciferol (vitamin D3) 25 25 mcg PO DAILY 03/26/21 04/13/23 Unknown History mcg (1,000 unit) capsule omega 3-mhg-ire-fish oil 100 1 cap PO DAILY 03/26/21 04/13/23 Unknown History mg-160 mg-1,000 mg capsule (Fish Oil) venlafaxine 150 mg 150 mg PO DAILY 03/26/21 04/13/23 Unknown History capsule,extended release 24 hr arginine HCl (L-arginine) 1,000 mg 1,000 mg PO DAILY 12/31/22 04/13/23 Unknown History tablet atorvastatin 80 mg tablet 80 mg PO DAILY 12/31/22 04/13/23 Unknown History biotin 5,000 mcg disintegrating 5,000 mcg PO DAILY 12/31/22 04/13/23 Unknown History tablet levothyroxine 50 mcg tablet 50 mcg PO DAILY 12/31/22 04/13/23 Unknown History mecobalamin (vitamin B12) 1,000 1,000 mcg PO DAILY 12/31/22 04/13/23 Unknown History mcg chewable tablet triamcinolone acetonide 55 mcg 1 spray intranasal DAILY 12/31/22 04/13/23 Unknown History nasal spray aerosol (Nasacort) Allergies Allergy/AdvReac Type Severity Reaction Status Date / Time theophylline Allergy Unknown Unknown Verified 05/17/25 18:34 cat dander Allergy Other Verified 05/17/25 18:34 mold Allergy Other Verified 05/17/25 18:34 pollen extracts Allergy Other Verified 05/17/25 18:34 [facility] Past Medical History Medical History Hyperlipidemia Family History Family History Father Cerebrovascular accident Mother Cerebrovascular accident Social History Social History Smoking status: Never smoker Alcohol intake: never Drinks per week: 1 Alcohol use details: wine Substance use: never Substance use type: does not use Lack of Transportation: No Lack of Food: Never True Current Housing: I Have Housing Concerned About Future Housing: No Difficulty Paying Gas/Electric Bills: No Difficulty Paying for Meds: No Currently Unemployed: No Education: High School Diploma/GED Difficulty w/ Childcare or Family Care: No Living arrangements: alone Spiritual care concerns: No Exam 2 Narrative: APPEARANCE: No apparent distress. Head: atraumatic., TMs normal bilaterally EYES: EOMI, NOSE: Atraumatic NECK: Trachea midline RESPIRATORY: No increased rate of breathing clear to auscultation CARDIOVASCULAR: RRR no peripheral edema ABDOMINAL: Non-distended soft nontender MUSCULOSKELETAl: No obvious deformities NEURO: Alert. Moving 4/4 extremities SKIN:: Warm, dry. Normal color PSYCHIATRIC: Normal affect Course Vital Signs Vital signs: Vital Signs Temperature 97.8 F 05/17/25 18:25 Pulse Rate 87 05/17/25 18:25 Respiratory Rate 13 05/17/25 18:25 Blood Pressure 159/74 H 05/17/25 18:25 Pulse Oximetry 96 05/17/25 18:25 Oxygen Delivery Room Air 05/17/25 18:25 Temperature 97.8 F 05/17/25 18:25 Pulse Rate 82 05/17/25 19:24 Respiratory Rate 13 05/17/25 18:25 Blood Pressure 152/71 H 05/17/25 19:24 Pulse Oximetry 97 05/17/25 19:24 Oxygen Delivery Room Air 05/17/25 18:25 Medical Decision Making [facility] Narrative Medical decision making narrative: -Course: 80-year-old female presenting with nausea and vomiting. Given IV fluids and Zofran. Sepsis workup obtained. White count 10.6. Lactic normal. Metabolic panel unremarkable. Urine not indicative infection. Viral swabs negative. Chest x- ray clear. On re-evaluation patient states she feels much better and is now tolerating p.o.. Vital signs are still stable. abdominal exam is benign. She is able to walk around the emergency department with a steady gait. Patient will be discharged home with Zofran. Patient was told to hold on the Augmentin until she sees our ENT on Wednesday. -DDX includes but is not limited to: Gastroenteritis, allergic reaction, viral syndrome, pneumonia, sepsis, UTI, dehydration Vital Signs Vital Signs: Vital Signs Temperature 97.8 F 05/17/25 18:25 Pulse Rate 87 05/17/25 18:25 Respiratory Rate 13 05/17/25 18:25 Blood Pressure 159/74 H 05/17/25 18:25 Pulse Oximetry 96 05/17/25 18:25 Oxygen Delivery Room Air 05/17/25 18: Temperature 97.8 F 05/17/25 18:25 Pulse Rate 82 05/17/25 19:24 Respiratory Rate 13 05/17/25 18:25 Blood Pressure 152/71 H 05/17/25 19:24 Pulse Oximetry 97 05/17/25 19:24 Oxygen Delivery Room Air 05/17/25 18:25 Lab Data 05/17/25 19:27 05/17/25 19:27 Labs: Lab Results 05/17/25 05/17/25 05/17/25 Range/Units 19:27 19:57 20:15 WBC 10.6 H (4.5-10.0) K/mm3 RBC 4.41 (4.2-5.4) M/mm3 Hgb 13.4 (12.0-15.0) g/dL Hct 40.9 (37.0-47.0) % MCV 92.7 (80-100) fl MCH 30.4 (26-34) pg MCHC 32.8 (32-36) g/dl RDW 13.1 (11.5-14.5) % Plt Count 203 (150-375) k/mm3 MPV 10.3 (7.4-10.4) fl Immature Gran % (Auto) 0.4 (0-0.5) % Neut % (Auto) 82.0 H (45.5-73.1) % Lymph % (Auto) 6.6 L (18.3-44.2) % Atkinson % (Auto) 9.4 H (2.6-8.5) % Eos % (Auto) 1.2 (0-4.4) % Baso % (Auto) 0.4 (0.2-1.2) % Lymph # (Auto) 0.70 L (0.9-3.2) K/mm3 Atkinson # (Auto) 1.0 H (0.1-0.6) K/mm3 Eos # (Auto) 0.1 (0-0.3) K/mm3 Baso # (Auto) 0.0 (0.0-0.1) K/mm3 Abs Immat Gran (auto) 0.04 H (0.00-0.031) K/mm3 Absolute Neuts (auto) 8.7 H (1.3-6.7) K/mm3 Absolute Nucleated RBC 0.000 (0.0-0.012) K/mm3 Nucleated RBC % 0.0 (0.0-0.2) % PT 13.3 (11.1-14.7) Seconds INR 1.0 APTT 32.6 (22.3-36.8) Seconds Sodium 136 L (137-145) mmol/L Potassium 4.1 (3.4-5.0) mmol/L Chloride 101 (98-107) mmol/L Carbon Dioxide 25 (22-30) mmol/L Anion Gap 10 (4-12) mmol/L BUN 15 (7-17) mg/dL Creatinine 0.77 (0.7-1.0) mg/dL Estim Creat Clear Calc 44 ml/min Estimated GFR > 60 (59 - ) Glucose 120 H (65-110) mg/dL Lactic Acid 0.9 (0.7-2.0) mmol/L Calcium 9.7 (8.4-10.2) mg/dL Phosphorus 3.1 (2.5-4.5) mg/dL Magnesium 2.1 (1.6-2.3) mg/dL Total Bilirubin 0.8 (0.2-1.3) mg/dL AST 34 (14-36) U/L ALT 25 (6-35) U/L Alkaline Phosphatase 101 (38-126) U/L Total Protein 7.4 (6.3-8.2) g/dL Albumin 4.2 (3.5-5.1) g/dL Lipase 66 (23-300) U/L Urine Color Yellow (Yellow) Urine Appearance Clear (Clear) Urine pH 6.0 (5.0-9.0) Ur Specific [place] 1.016 (1.001-1.035) Urine Protein Trace (Negative) mg/dL Urine Glucose (UA) Negative (Negative) mg/dL Urine Ketones Trace H (Negative) mg/dL Ur Blood (Man) Negative (Negative) Urine Nitrate Negative (Negative) Urine Bilirubin Negative (Negative) Urine Urobilinogen 0.2 (<2.0) mg/dL Add Ur Microanalysis Reviewed Leukocyte Esterase Rfl 2+ H (Negative) MITCH/UL Urine RBC 0-2 (0-2) /hpf Urine WBC 0-5 (0-3) /hpf Ur Squamous Epith Cells None seen (Few) /hpf Urine Bacteria None seen /hpf Urine Casts 0-2 Influenza A (RT-PCR) Negative (Negative) Influenza B (RT-PCR) Negative (Negative) RSV (RT-PCR) Negative (Negative) SARS-CoV-2 RNA (RT-PCR) Negative (Negative) ABG Data ABG results: 05/17/25 19:27 VBG pH 7.440 H* VBG pCO2 36.7 L VBG pO2 < 27.0 L VBG HCO3 24.4 O2 Delivery Device Room air O2 Liters/Min Not Reportable FiO2 21 Discharge Plan Discharge Clinical Impression: Nausea & vomiting Patient Disposition: Home Condition: Stable Instructions: Antibiotic Form, Acute Nausea and Vomiting (DC) Additional Instructions: You were seen emergency department for nausea and vomiting. Please use Zofran for symptoms. Please eat a bland diet today feel better. Please follow-up your primary care physician for further management. Return to the ED if you develop fevers, intractable nausea vomiting or any new or worsening symptoms. Patient Language: Chinese Prescriptions: New ondansetron 4 mg tablet,disintegrating 4 mg PO Q8H PRN (Reason: nausea and vomiting) Qty: 30 0RF No Action venlafaxine 150 mg capsule,extended release 24hr 150 mg PO DAILY cholecalciferol (vitamin D3) 25 mcg (1,000 unit) capsule 25 mcg PO DAILY Fish Oil 100-160-1,000 mg capsule 1 cap PO DAILY atorvastatin 80 mg tablet 80 mg PO DAILY levothyroxine 50 mcg tablet 50 mcg PO DAILY triamcinolone acetonide [Nasacort] 55 mcg Aerosol,Holman 1 spray INTRANASAL DAILY Rx Instructions: administer into each nostril arginine HCl (L-arginine) 1,000 mg Tablet 1,000 mg PO DAILY biotin 5,000 mcg Tablet,Disintegrating 5,000 mcg PO DAILY mecobalamin (vitamin B12) 1,000 mcg Tablet,Chewable 1,000 mcg PO DAILY Follow-up/Referrals: Riaz,BRAD Aly [Primary Care Provider] -
== END 2025-05-17 21:20 | disposition home or self-care (01) ==
PROVIDERS: Emergency Provider Emergency Medicine; PCP Physician Assistant
DX: R11.2 Nausea with vomiting, unspecified (principal); Z20.822 Contact with and (suspected) exposure to COVID-19; E78.5 Hyperlipidemia, unspecified; R82.998 Other abnormal findings in urine; Z79.899 Other long term (current) drug therapy; R94.31 Abnormal electrocardiogram [ECG] [EKG]
CPT/HCPCS: 36415; 71045; 80053; 81001; 82803; 83605; 83690; 83735; 84100; 85025; 85610; 85730; 87040; 87086; 87637; 93005; 96361; 96374; 99284; J2405; J7120